=== PATIENT | male | born 1945 | race Caucasian/White ===

== ENCOUNTER 2019-05-03 10:45 | Outpatient (RCR) | payer MEDICARE, SELFPAY ==
--- NOTE | 2019-03-11 11:58 | PTOPEVAL ---
Thank you for referring this patient to [facility]. Please review, sign, date and return this plan of care [facility]. Pt referred to therapy due to OA of knee and hip. He demonstrates leg weakness, decreased balance, decreased ability to ambulate on level surfaces and steps. He requires additional skilled therapy 2x/wk x 4 wk to achieve therapy goals and improve function mobility. I agree with and certify that the following plan of care is medically necessary. Referring Physician Date Attending Provider: Antwan Murry MD Referring Provider: *PT Outpatient Evaluation Start: 03/11/19 09:54 Freq: Status: Active Protocol: Document 03/11/19 09:51 BLAIR (Rec: 03/11/19 10:50 BLAIR [id number]) Therapy Assessment Status Assessment Status Assessment Status Evaluation Outpatient Past Medical History Musculoskeletal History Hx Arthritis Yes: OA of left hip and knee Hx Joint Replacement Yes: right TKR 9 years ago Evaluation Information Problem Diagnosis left hip OA and knee OA Onset 6 months Subjective Information Pt reports left knee and hip Query Text:As Reported By Patient/ pain. States he has pain and Family difficulty with negotiating steps with left LE. States he avoids the basement at home due to the steps. HE feels unstable when he first stands due to legs feeling unstable. He report difficulty if prolonged standing. Denies problems with sitting, but the getting in/out of car is difficult. States increased pain with walking longer distances in the community. Reports the pain has progressed over the past 6 months. Cortison injection on left knee 4 wks and left hip injection 3 wks. He received therapy for his right hip 1 year ago, but is not performing HEP. Does not perform a walking or exercise program. He has a cane and walker at home, but does not want to use them. 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
--- NOTE | 2019-03-30 08:07 | PCPTNOTE ---
Patient called & cancelled scheduled appointment this date due to work.
--- NOTE | 2019-04-04 09:58 | PCPTNOTE ---
Patient did not show up for scheduled appointment this date.
--- NOTE | 2019-04-06 09:58 | PCPTNOTE ---
Patient did not show up for scheduled appointment this date. Called patient, & he stated that he just could make it, reminded him of his next appointment, & asked if he couldn't make to please call to reschedule.
--- NOTE | 2019-04-11 09:18 | PCPTNOTE ---
Patient called & cancelled scheduled appointment this date due to unknown reason. Will attempt to reschedule his re-eval. However, if pt does not attend his re-eval will plan to DC due to repeated no show/cancel.
--- NOTE | 2019-05-03 11:35 | PTOPEVAL ---
Thank you for referring this patient to [facility]. Please review, sign, date and return this plan of care [facility]ITY. Pt has been seen for 5 physical therapy visits from 03/11/19-05/03/19 to address his knee and hip pain. He has reached maximal potential with skilled therapy and is indep with a HEP. He has partially achieved his therapy goals. Plan to DC skilled therapy at this time with pt to cont with HEP and walking program. I agree with and certify that the following plan of care is medically necessary. Referring Physician Date Attending Provider: Antwan Murry MD Referring Provider: *PT Outpatient Re-Evaluation/Discharge Start: 03/11/19 09:54 Freq: Status: Active Protocol: Document 05/03/19 10:39 BLAIR (Rec: 05/03/19 11:30 [facility] [id number]) Outpatient Past Medical History Musculoskeletal History Hx Arthritis Yes: OA of left hip and knee Hx Joint Replacement Yes: right TKR 9 years ago Evaluation Information Problem Diagnosis left hip OA and knee OA Onset 6 months Additional Evaluation Detail Reports the pain has progressed over the past 6 months. Cortison injection on left knee 4 wks and left hip injection 3 wks. Subjective Information Reports the weather plays a Query Text:As Reported By Patient/ factor in his left knee and Family hip pain. He does the feel the leg is doing better. States the leg continues to give out during steps. He is going in/ out of the basement, but holds onto the railing for support. He does have knee pain with the steps. He reports improved LE stability with standing and transfers. HE is able to stand for only for 15min then he needs to move due to pain and weakness. He cont to have stiffness and pain with prolonged sitting in the car. He has left knee pain with distance community walking. States he will use the cane for community walking with decreased pain and improved endurance. He is performing his HEP 1x/ day. Pain Assessment Timing of Pain Assessment Timing of Pain Assessment Pre-Treatm
== END 2019-05-26 09:42 | disposition home or self-care (01) ==
LOC: ANHPT 10:45
PROVIDERS: PCP Family Medicine; Visit Provider Orthopaedic Surgery
DX: M17.12 Unilateral primary osteoarthritis, left knee (principal); M16.12 Unilateral primary osteoarthritis, left hip
CPT/HCPCS: 97110; 97116; 97140; 97162; 97530

== ENCOUNTER 2019-07-26 10:58 | Outpatient (CLI) | payer MEDICARE, SELFPAY ==
--- NOTE | ~2019-07-26 | XR_ITS ---
EXAMINATION: XR lg joint inject/asp w image DATE: 07/26/2019 11:39 INDICATION: Unilateral primary osteoarthritis, right hip. TECHNIQUE: A time-out was performed to verify the patient's name, date of , and procedure to b e performed. The procedure including the risks, benefits, and alternatives was discussed with the pat ient. Risks discussed included bleeding and infection. The patient understood the risks and agreed to proceed. The skin overlying the right hip joint was prepped and draped in usual sterile fashion. A nesthetic was administered with 1% lidocaine subcutaneously. A 22 G needle was advanced under fluoro scopic guidance into the joint. Injection of 1 mL of Omnipaque 240 confirmed intra-articular positio n of the needle. Subsequently, injectate consisting of 5 mL 1% lidocaine and 2 mL 10 mg/mL Kenalog w as instilled. The needle was removed and the entry site was cleaned and dressed. There were no imme diate complications. Fluoroscopy exposure time was 0.1 minutes. The total number of images was 2. FINDINGS: Real-time fluoroscopy demonstrates the needle in the right hip joint. Patient's pain prior to procedure:6/10. Patient's pain following the procedure: 0/10. IMPRESSION: 1. Right hip joint injection of local anesthetic and steroid with decrease in the patient's presentin g pain. Reviewed, dictated and finalized at location A. IMPRESSION: 1. Right hip joint injection of local anesthetic and steroid with decrease in t he patient's presenting pain.
== END 2019-07-26 10:59 | disposition home or self-care (01) ==
PROVIDERS: PCP Family Medicine; Visit Provider Orthopaedic Surgery
DX: M16.11 Unilateral primary osteoarthritis, right hip (principal)
CPT/HCPCS: 20610; 77002; J3301; Q9966

== ENCOUNTER 2020-07-31 10:20 | Outpatient (CLI) | payer MEDICARE, SELFPAY ==
--- NOTE | ~2020-07-31 | XR_ITS ---
EXAMINATION: XR lg joint inject/asp w image DATE: 07/31/2020 11:06 INDICATION: Unilateral primary osteoarthritis, right hip. TECHNIQUE: A time-out was performed to verify the patient's name, date of , and procedure to b e performed. The procedure including the risks, benefits, and alternatives was discussed with the pat ient. Risks discussed included bleeding and infection. The patient understood the risks and agreed to proceed. The skin overlying the right hip joint was prepped and draped in usual sterile fashion. A nesthetic was administered with 1% lidocaine subcutaneously. A 22 G needle was advanced under fluoro scopic guidance into the joint. Injection of 1 mL of Omnipaque 240 confirmed intra-articular positio n of the needle. Subsequently, injectate consisting of 5 mL 1% lidocaine and 2 mL 10 mg/mL Kenalog w as instilled. The needle was removed and the entry site was cleaned and dressed. There were no imme diate complications. Fluoroscopy exposure time was 0.1 minutes. The total number of images was 2. FINDINGS: Real-time fluoroscopy demonstrates the needle in the right hip joint. Patient's pain prior to procedure:0/10. Patient's pain following the procedure: 0/10. IMPRESSION: 1. Fluoroscopy guided right hip joint injection of local anesthetic and steroid. Reviewed, dictated and finalized at location A. IMPRESSION: 1. Fluoroscopy guided right hip joint injection of local anesthetic and steroid .
== END 2020-07-31 10:21 | disposition home or self-care (01) ==
LOC: ANHIMG 10:21
PROVIDERS: PCP Family Medicine; Visit Provider Orthopaedic Surgery
DX: M16.11 Unilateral primary osteoarthritis, right hip (principal)
CPT/HCPCS: 20610; 77002; J3301; Q9966

== ENCOUNTER 2022-05-30 07:46 | Outpatient (CLI) | payer MEDICARE, SELFPAY ==
--- NOTE | 2022-05-30 08:55 | ECG_ITS ---
Measurements Intervals [place] Rate: 53 P: 15 AR: 192 QRS: -46 QRSD: 104 T: 30 QT: 412 QTc: 387 Interpretive Statements SINUS BRADYCARDIA LEFT AXIS DEVIATION BORDERLINE ECG NO PREVIOUS ECG AVAILABLE FOR COMPARISON Electronically Signed On 05-31-2022 14:49:01 CDT by Syed Santoro M.D.
[2022-05-30 09:31] LABS: Basophils Absolute Auto 0.1 K/mm3 (0.0-0.1); Basophils Percent Auto 0.8 % (0.2-1.2); Eosinophils Absolute Auto 0.1 K/mm3 (0-0.3); Eosinophils Percent Auto 1.2 % (0-4.4); Hematocrit 44.5 % (42.0-52.0); Hemoglobin 15.1 g/dL (14.0-18.0); Immature Granulocyte Absolute 0.02 K/mm3 (0.00-0.031); Immature Granulocyte Percent A 0.3 % (0-0.5); Lymphocytes Absolute Auto 1.76 K/mm3 (0.9-3.2); Lymphocytes Percent Auto 27.2 % (18.3-44.2); Mean Corpuscular HGB Conc 33.9 g/dl (32-36); Mean Corpuscular Hemoglobin 30.8 pg (26-34); Mean Corpuscular Volume 90.6 fl (80-100); Mean Platelet Volume 10.5 fl (7.4-10.4); Monocytes Absolute Auto 0.4 K/mm3 (0.1-0.6); Monocytes Percent Auto 6.2 % (2.6-8.5); Neutrophils Absolute Auto 4.2 K/mm3 (1.3-6.7); Neutrophils Percent Auto 64.3 % (45.5-73.1); Platelet Count Result 243 k/mm3 (150-375); Red Blood Count 4.91 M/mm3 (4.6-6.20); Red Cell Distribution Width 12.5 % (11.5-14.5); White Blood Count 6.5 K/mm3 (4.5-10.0)
[2022-05-30 09:39] LABS: Albumin Level 4.6 g/dL (3.5-5.1); Estimated Glomerular Filt Rate > 60; Glucose 105 mg/dL (65-110)
[2022-05-30 09:47] LABS: Urine Cotinine NEGATIVE
[2022-05-30 09:48] LABS: Hemoglobin A1C 4.9 % (<5.7)
== END 2022-05-30 07:47 | disposition home or self-care (01) ==
LOC: ANHSURGERY 07:51
PROVIDERS: PCP Family Medicine; Visit Provider Orthopaedic Surgery
DX: Z01.818 Encounter for other preprocedural examination (principal); M16.11 Unilateral primary osteoarthritis, right hip; R94.31 Abnormal electrocardiogram [ECG] [EKG]
CPT/HCPCS: 80307; 82040; 82565; 82947; 83036; 85025; 87081; 93005

== ENCOUNTER 2022-06-16 00:47 | Day surgery (SDC) | payer MEDICARE, SELFPAY ==
[2022-05-30 08:00] VITALS: BMI 34.9
--- NOTE | 2022-05-30 08:23 | PC.NURSE ---
Report to the Outpatient Waiting Room, entrance under the green pavilion located off [facility], at time __0600 on date __06/16/22 . Planned Procedure Time: _729 . Time changes happen often and if your time is changed the preop area will call you the afternoon before. - You and your visitor will be asked to self-screen and do not enter if you have any COVID symptoms. - A mask is optional within the hospital at this time. Patients may have clear liquids (water, carbonated beverages, clear teas, apple juice) until 3 hours prior to surgery with a maximum of 20 ounces. - No food from midnight until time of surgery - Infants may have breast milk until 4 hours before surgery, formula 6 hours prior to surgery. - Children will be allowed to drink immediately following surgery. If applicable, please bring a bottle or sippy cup to assist with drinking. Juice, water, soda, and popsicles are readily available. For infants on formula, please bring formula the day of surgery. Pacifiers are allowed. Take the following medications with a SIP of water the morning of surgery: ____NONE DO NOT STOP ANY OF YOUR OTHER PRESCRIPTION MEDICATIONS PRIOR TO SURGERY ?EXCEPT THE FOLLOWING Medications to discontinue per physician NONE Please no make-up, nail belarusian, hairspray, perfume, deodorant, or body powder the day of surgery. No jewelry (including any body piercings) or valuables the day of surgery, leave them at home. Please take a shower or bath the night before, or the morning of, surgery with an antibacterial soap. Wear comfortable, loose fitting clothing. Children are encouraged to wear pajamas. - Jewelry must be removed prior to entering the operating room. Rings and piercings that are not removed may be cut off. - The hospital will not accept responsibility for valuables. - Please leave all valuables, including medications, at home the day of surgery. If you are going home after surgery, a licensed pharmacy delivery driver must drive you home. - NO public transportation without another adult if you receive anesthesia. - We recommend that an adult stay with you for 24 hours following discharge. - We also recommend that you do not drive, make important decision, drink alcoholic beverages, or take any drugs that were not prescribed by your health care provider for at least 24 hours after your discharge time. Follow any additional instructions given to you from your surgeon. If you or anyone in your household have experienced Covid symptoms in the past week, please notify your surgeon or the nurse liaison at the phone number below for possible testing. VERBAL AND WRITTEN instructions given to ___PATIENT AND DEBBIE and asked if any additional questions and then verbalized understanding. Patient advised to call surgeon office or pre surgery nurse liaison [phone] if any additional questions.
[2022-05-30 08:44] VITALS: BP 147/69; PULSE 58; RESP 18; TEMP 36.8; O2SAT 99
[2022-06-16] VITALS (12 sets, daily range): BP systolic 119–159; BP diastolic 56–75; PULSE 66–83; RESP 12–18; TEMP 35.7–36.9; O2SAT 93–99
--- NOTE | ~2022-06-16 | XR_ITS ---
EXAMINATION: XR hip RT min 2V DATE: 06/16/2022 10:56 INDICATION: Right hip arthroplasty. Postop. TECHNIQUE: 2 views of right hip were obtained. COMPARISON: Right hip radiographs 06/04/2022 FINDINGS: There is a total right hip arthroplasty in near-anatomic alignment. No fracture. There is g as in the soft tissues, consistent with recent surgery. IMPRESSION: 1. Total right hip arthroplasty in near-anatomic alignment. Reviewed, dictated and finalized at location A.
--- NOTE | ~2022-06-16 | XR_ITS ---
EXAMINATION: XR surgery orthopedic DATE: 06/16/2022 09:37 INDICATION: Right hip osteoarthritis. TECHNIQUE: A single intraoperative view of the right hip was obtained. COMPARISON: Right hip radiographs 06/04/2022 FINDINGS: The acetabular cup is in expected position. There is a broach in the proximal right femur. IMPRESSION: 1. Total right hip arthroplasty in progress. Reviewed, dictated and finalized at location A.
--- NOTE | 2022-06-16 06:34 | P.PNAN_ITS ---
Anes - Initial Pre Proc Eval Procedure: Operation Date: 06/16/22 07:30 Proposed Procedures p Right Total Hip Arthroplasty, Anterior Approach - Antwan Murry MD Date/Time: 06/16/22 06:34 Surgeon: Antwan Murry MD Pre Op Diagnosis: O A Right Hip Patient Data Age: 76 Gender: M Height: 1.65 m Weight: 95.1 kg Last Vital Signs Temp 36.8 C 05/30/22 08:44 Pulse 58 L 05/30/22 08:44 Resp 18 05/30/22 08:44 BP 147/69 H 05/30/22 08:44 Pulse Ox 99 05/30/22 08:44 O2 Del Method Room Air 05/30/22 08:44 Allergies Allergy/AdvReac Type Severity Reaction Status Date / Time Antihistamines - Alkylamine AdvReac Intermediate All Verified 06/16/22 06:28 antihistamines cause prostate swelling Home Medications Medication Instructions Recorded Confirmed Type finasteride 5 mg tablet See Rx Instructions .Route 08/19/21 06/16/22 Rx .COMPLEX #90 tabs tamsulosin 0.4 mg capsule See Rx Instructions .Route 08/19/21 06/16/22 Rx .COMPLEX #90 caps acetaminophen 650 mg 650 mg PO Q12H PRN Pain 05/30/22 06/16/22 History tablet,extended release (Tylenol Arthritis Pain) rivaroxaban 10 mg tablet (Xarelto) 10 mg PO DAILY #14 tabs 06/04/22 06/04/22 Rx Patient hx anesthesia problems: none Family hx anesthesia problems: none Results Review: All pre-operative results and documents have been reviewed as part of the pre- operative evaluation. [facility] Past Medical History Medical History BPH (benign prostatic hyperplasia) Urinary disorder Surgical History Surgical History H/O knee surgery Right knee unicompartmental replacement History of cataract surgery Family History Family History Other Family history of sleep apnea Social History Social History Smoking packs per day: 2 Smoking cigarettes per day: 40.0 Years smoked: 10 Smoking pack-years: 20.00 Smoking status: Former smoker Tobacco type: cigarettes Smoking end date: 02/23/71 Alcohol intake: never Substance use type: does not use Living arrangements: with family Additional living arrangements comments: Occupation/Education: retired Gender identity (if verbalized by the patient): Male Spiritual care concerns: No Anes - Eval Final PreProcedure Day of Procedure 06/16/22 06:34 Patient weight: obese Heart: regular rate and rhythm Lungs: clear to auscultation Airway: Mallampati scale class II Neurological: alert and oriented Last oral intake: >/= 8 hours ASA classification: II Emergent: no Anesthetic plan: proceed Anesthesia type and monitoring: general ETT and standard monitoring Results Review: All pre-operative results and documents have been reviewed as part of the pre- operative evaluation. Informed Consent: The patient's anesthetic plan and its attendant risks and benefits were discussed with the patient/family/POA. Questions were solicited and answers provided to the satisfaction of the patient/family/
[2022-06-16] MEDS: ACETAMINOPHEN 500 MG TABLET 1000 MG PO ×3 (06:42→21:29)
[2022-06-16] MEDS: LACTATED RINGERS 1,000 ML 30 ML IV CONT ×2 (06:51→10:41)
[2022-06-16] MEDS: TRANEXAMIC ACID 1,000MG/ISO100 1,000 MG/100 ML BAG 200 MG IVPB (07:08)
--- NOTE | 2022-06-16 07:24 | WPDHPUPDATE1 ---
History and Physical Update Update Date/Time: 06/16/22 07:24 History and Physical has been reviewed, including an updated exam of the patient. There are NO changes in the patient's condition. Risks, benefits, and alternatives have been discussed and questions answered. Patient agrees to proceed with procedure, which is a standard total hip replacement.
[2022-06-16] MEDS: ceFAZolin 2 GM/D5W 50 ML 2 GM/50 ML BAG IVPB ×2 (07:44→16:11)
--- NOTE | 2022-06-16 09:55 | SUR.OPER ---
Cell Saver used intraoperatively EBL- 350 ml Patient received 125 ml back
--- NOTE | 2022-06-16 10:33 | W.PM.PROC2 ---
Procedure Note - Detailed Date of Procedure 06/16/22 Pre-op Diagnosis O A Right Hip Post-op Diagnosis Same Procedure Performed right total hip replacement, standard approach Surgeon Antwan Murry MD Manager Clinical Informatics Ashlee Waters Anesthesia General Description of Procedure The patient was identified and proper site identified. He was taken operating room and transferred to the OR table taking care to pad torso extremities. After general anesthetic induction and intubation was put in the left lateral decubitus position usual manner for right hip replacement. Right hip and thigh was prepped and draped in usual sterile fashion. Curvilinear incision was made over the greater trochanter. Sharp dissection carried down through subcutaneous tissue to the gluteus fascia and IT band which were divided in incision. . The anterior half of the abductors were sharply dissected off the greater trochanter developed the interval between the abductors and the capsule. Capsule was divided in an inverted T-fashion allowing for the hip to be dislocated. Neck cut was made about two fingerbreadths above the level lesser trochanter and head removed. Acetabulum was cleared of debris and reamed sequentially to 53 millimeters. A 54 G7 cup was impacted in about 20? of anteversion and 40? of abduction following the patient's anatomy. It was further secured with a screw and a trial liner placed. Femur was sequentially reamed to accept a size 12 microplasty femoral stem. Trial reduction was undertaken. Intraoperative x-ray showed satisfactory position of the implants. The trials removed. The wound was thoroughly irrigated. The real liner for the 36 head was seated in the acetabular shell. The real size 13 microplasty femoral stem was seated. This combination was trialed and with a +636 head gave good holiness of leg lengths and excellent stability. The real size 36+ six ceramic construct was impacted on the neck of the femoral component. After noted thorough lavage of the joint the hip was reduced. Stability again assessed as noted be stable through range of motion. The arely-incisional and articular tissues were infiltrated with 60 cc of the arthroplasty solution. . The Surgicel powder was used both deep and superficial to the deep fascia for added hemostasis. Capsule was repaired with 2. Vicryl suture. Abductors repaired back to the greater trochanter with #5 Ethibond interrupted sutures passed through a bony bridge. The deep fascia was reapproximated with 0 looped PDS suture as was the deeper layers of the subcu. Skin reapproximated with 3-0 Monocryl, 2-0 Quill and tissue adhesive. Sterile dressing was applied. Tolerated the procedure well. There were no known intraoperative complications. Estimated blood loss 350 cubic centimeters. He received 125 back via Cell Saver. He received perioperative antibiotics. He was awakened, extubated taken to recovery area in stable condition. Estimated Blood Loss 350 ( 125 cell Saver return) Drains No Packing No Pathology None sent Complications No immediate complications Condition Stable Disposition PACU [facility] Billing Surgery - Charge Forward: Surgery Billing ([id number])
--- NOTE | 2022-06-16 11:12 | SUR.PHASEI ---
1112: Simple mask removed.
--- NOTE | 2022-06-16 12:01 | ADMGEN ---
This patient, Nolberto Mooney, was admitted to [address] [facility] Surg Room 327-01. Patient/family oriented to hospital policies and general routines including ID bracelet, bed and alarms, visiting hours, pain management, procedures, bathroom and other care routines, personal items, smoking policy, room service/diet, and visiting hours. Information on how to activate the Rapid Response Team has been discussed. Patient/Family are encouraged to report perceived risks to care and to ask questions if they do not understand what they are told or what they should do.
--- NOTE | 2022-06-16 12:46 | PM.IMCN ---
Assessment and Plan Assessment and plan (1) S/P total right hip arthroplasty: Code(s): Z96.641 - Presence of right artificial hip joint Status: Acute Assessment and Plan: Postop care per orthopedic physician DVT prophylaxis per orthopedic physician. SCDs have been ordered and he is on Xarelto. Analgesics per orthopedic physician. The patient is on oxycodone, fentanyl, Tylenol, and Celebrex PT OT per orthopedic physician (2) BPH (benign prostatic hyperplasia): Code(s): N40.0 - Benign prostatic hyperplasia without lower urinary tract symptoms Status: Acute Assessment and Plan: Continue with finasteride and tamsulosin. Plan GI prophylaxis Pepcid HPI Data of Consult Consult date: 06/16/22 Requesting Physician: Antwan Murry MD Primary Care Provider: Javad Finn MD Consult Narrative Narrative: Nolberto Mooney is a 76 year old male who has severe osteoarthritis to his right hip. The patient has lost 33 lb recently and had does appear to help his right hip somewhat. However the patient stated that he has limited activity due to the right hip pain. The patient stated that he typically gained his weight back and then the right hip pain gets worse again. Patient has difficulty with everyday activities. He has tried conservative measures. Today the patient had a right total hip replacement per Dr. Murry. Please see operative report. Estimated blood loss is 350 with 125 mL cell Saver return. According to the operative report there was no immediate complications. The patient is rather sleepy today. He is falling asleep during the interview. The patient does not typically wear oxygen at home but is on oxygen at 2 L per nasal cannula today. The patient denies any sleep apnea. The patient has no complaints at this time. The patient was admitted to Orthopedic surgery Services. The hospitalist group was asked to consult on this patient on the date of service of 06/16/2022. Review of Systems Review of Systems: All systems reviewed & are unremarkable except as noted in HPI and below Constitutional: Constitutional: Reports as per HPI and Reports no additional constitutional complaints Eyes: Eyes: Reports as per HPI and Reports no additional eye complaints ENT: Reports system reviewed and no additional complaints, except as documented and Reports Normal hearing present Cardiovascular: Cardiovascular: Reports no additional cardiovascular complaints Respiratory: Respiratory: Reports no additional respiratory complaints and Reports no additional respiratory complaints Gastrointestinal: Gastrointestinal: Reports as per HPI and Reports no additional gastrointestinal complaints Musculoskeletal: Musculoskeletal: Reports no additional musculoskeletal complaints Integumentary/Breasts: Skin/Breast: Reports system reviewed and no additional complaints, except as docu and Reports as per HPI Neurologic: Reports system reviewed and no additional complaints, except as documented, Reports as per HPI and Reports Normal hearing present Psychiatric: Psychiatric: Reports no additional psychiatric complaints and Reports as per HPI Endocrine: Endocrine: Reports no additional endocrine complaints Hematologic/Lymphatic: Hematologic/Lymphatic: Reports no additional hematologic/lymphatic complaints Allergic/Immunologic: Allergic/Immunologic: Reports no additional allergic/immunologic complaints [facility] Past Medical History Medical History (Updated 06/16/22 @ 16:10 by Genny Davis NP) BPH (benign prostatic hyperplasia) Urinary disorder The patient did have a Martínez catheter but no longer uses a Martínez catheter. Surgical History Surgical History (Updated 06/16/22 @ 16:11 by Genny Davis NP) H/O hemorrhoidectomy H/O knee surgery Right knee unicompartmental replacement History of cataract surgery S/P total right hip arthroplasty Family History Family History (Reviewed 06/16/22 @ 16
[2022-06-16] MEDS: oxyCODONE HCL (*CRX) 5 MG TAB IR PO ×3 (13:59→21:29)
[2022-06-16] MEDS: FINASTERIDE 5 MG TABLET BY MOUTH (17:03)
[2022-06-16] MEDS: TAMSULOSIN HCL 0.4 MG CAPSULE BY MOUTH (17:03)
[2022-06-16] MEDS: SENNA/DOCUSATE SODIUM TABLET 2 TAB PO (21:29)
[2022-06-16] MEDS: FAMOTIDINE 20 MG TABLET PO (21:30)
[2022-06-17] VITALS: BP 116/46; PULSE 64; RESP 14; TEMP 37.2; O2SAT 96
[2022-06-17] MEDS: ceFAZolin 2 GM/D5W 50 ML 2 GM/50 ML BAG IVPB ×2 (01:08→08:33)
[2022-06-17] MEDS: oxyCODONE HCL (*CRX) 5 MG TAB IR PO ×4 (01:09→13:11)
[2022-06-17 04:00] VITALS: BP 129/48; PULSE 64; RESP 14; TEMP 36.4; O2SAT 98
--- NOTE | 2022-06-17 07:33 | PM.IMPN ---
Progress Note: A&P Assessment and Plan (1) S/P total right hip arthroplasty: Code(s): Z96.641 - Presence of right artificial hip joint Status: Acute Assessment and Plan: Postop care per orthopedic physician. POD1 Right total hip replacement. DVT prophylaxis per orthopedic physician. SCDs have been ordered and he is on Xarelto. Analgesics per orthopedic physician. The patient is on oxycodone, fentanyl, Tylenol, and Celebrex PT OT and weight bearing status per ortho. (2) BPH (benign prostatic hyperplasia): Code(s): N40.0 - Benign prostatic hyperplasia without lower urinary tract symptoms Status: Chronic Assessment and Plan: Continue with finasteride and tamsulosin. Counseled to monitor urine output and discussed symptoms concerning for acute retention. He and his verbalized understanding. Plan Patient discharging home with his today. Time Spent With Patient Time with patient: 15 - 25 minutes Subjective Date/time seen: 06/17/22 07:33 He reports indwelling urinary catheter was removed this morning and he voided a small amount after it was removed. No lower abdominal pain, dysuria, or hematuria. He has pain to his right hip that is tolerable with oral medications. He denies chest pain, SOB, cough, abdominal pain, N/V or paresthesia. Review of Systems Review of Systems: All systems reviewed & are unremarkable except as noted in HPI and below Exam Narrative: General: No acute distress.? Lying in bed. Non-toxic appearing. Mental Status/Psych: Awake, alert and oriented x4 with clear speech. Pleasant and cooperative. neutral mood and affect. Skin: Skin fair, warm, dry without rashes or lesions. right hip aquacel clean, dry and intact. Surrounding skin without ecchymosis or erythema. ? HEENT: Normocephalic. Sclera is non-icteric. Pupils equal and round. Oral mucosa pink and moist. Neck: No JVD. Heart: S1 and S2 regular rate and rhythm. No murmurs, gallops, or rubs auscultated. Chest: Respirations even and unlabored. Lung sounds are clear to auscultation without wheezes, rhonchi, or rales. Abdomen: Soft, obese and non-tender to palpation.? Bowel sounds present in all 4 quadrants. No guarding. Extremities:? No edema, erythema or calf tenderness. Neurological: No focal deficits. Sensation intact all extremities ? Objective Data Vital Signs Vital Signs: Vital Signs - 24 hr 06/16/22 10:41 06/16/22 10:55 06/16/22 11:10 Temperature 97.8 F Pulse Rate 79 68 71 Respiratory Rate 12 12 12 Blood Pressure 159/56 H 138/68 130/57 L Pulse Oximetry 98 97 98 Oxygen Delivery Simple Face Mask Simple Face Mask Simple Face Mask Oxygen Flow Rate 6 8 8 06/16/22 11:15 06/16/22 11:25 06/16/22 11:40 Temperature Pulse Rate 69 66 70 Respiratory Rate 12 12 12 Blood Pressure 125/75 119/64 Pulse Oximetry 95 93 94 Oxygen Delivery Nasal Cannula Nasal Cannula Nasal Cannula Oxygen Flow Rate 2 2 3 06/16/22 12:50 06/16/22 12:56 06/16/22 12:45 Temperature 96.3 F L Pulse Rate 77 Respiratory Rate 16 Blood Pressure 128/62 Pulse Oximetry 98 95 98 Oxygen Delivery Nasal Cannula Nasal Cannula Oxygen Flow Rate 3 2 06/16/22 13:20 06/16/22 13:35 06/16/22 20:00 Temperature 96.5 F L 98.5 F Pulse Rate 83 77 Respiratory Rate 18 14 Blood Pressure 144/63 H 154/60 H Pulse Oximetry 97 97 Oxygen Delivery Room Air Oxygen Flow Rate 06/17/22 00:00 06/17/22 04:00 Temperature 98.9 F 97.6 F Pulse Rate 64 64 Respiratory Rate 14 14 Blood Pressure 116/46 L 129/48 L Pulse Oximetry 96 98 Oxygen Delivery Oxygen Flow Rate Intake/Output Intake/Output: Intake & Output 06/14/22 06/15/22 06/16/22 06/17/22 23:59 23:59 23:59 23:59 Intake Total 640 500 Output Total 40 800 Balance 600 -300 Meds/Results Medications: Active Medications Generic Name Dose Route Start Last Admin Trade Name Freq PRN Reason Stop Dose Admin Acetaminophen 1,000
[2022-06-17 07:59] VITALS: BP 113/47; PULSE 59; RESP 16; TEMP 36.2; O2SAT 96
--- NOTE | 2022-06-17 08:25 | PM.DS ---
DS: Admitting Diagnosis Discharge Date June 17, 2022 Admitting Diagnosis osteoarthritis right hip DS: Discharge Diagnosis Discharge Diagnosis (1) S/P total right hip arthroplasty: Code(s): Z96.641 - Presence of right artificial hip joint Status: Acute Plan Patient will be discharged home. Follow-up will be in the office with me in two weeks. He is use walker full-time. I recommended 3/8 inch shoe lift left lower extremity. DS: Summary Hospital Course Reason for hospitalization: Observation following outpatient procedure Hospital Course: Following the patient's surgery he was admitted to the floor. Therapy was started and he excelled. Being discharged home on postop day one. Overnight stay otherwise uneventful. Time Spent with Patient Time attestation: Total time spent providing and/or coordinating discharge services: Exam Const: General: cooperative, no acute distress and alert Nutritional Appearance: other Orientation/consciousness: patient oriented x3 Limitations: no limitations HENMT: Head: normal to inspection Chest: Chest palpation & inspection: normal inspection of the chest Resp: Effort & Inspection: normal respiratory effort and able to speak in complete sentences GI: Inspection: other Neuro: General: patient oriented x3 Cranial nerves: Yes Normal hearing present Cognition (Neuro): normal cognition Speech: normal speech Gait exam (Neuro): Other gait observations present Extrem: General: normal to inspection and other Other: Exam of Right hip wound shows that it is dry. Minimal swelling. No bruising. Grossly neurovascular status intact right lower extremity. Slight leg length discrepancy with the right being about a centimeter longer than the left clinically. Psych: Appearance: grossly normal Mental Status: mental status grossly normal Radiology Reports: Comments: EXAMINATION: XR hip RT min 2V DATE: 06/16/2022 10:56 INDICATION: Right hip arthroplasty. Postop. TECHNIQUE: 2 views of right hip were obtained. COMPARISON: Right hip radiographs 06/04/2022 FINDINGS: There is a total right hip arthroplasty in near-anatomic alignment. No fracture. There is gas in the soft tissues, consistent with recent surgery. IMPRESSION: 1. Total right hip arthroplasty in near-anatomic alignment. Reviewed, dictated and finalized at location A. DS: Data Imaging Attestation: I personally reviewed and interpreted this imaging study as follows: Discharge Plan Discharge Patient Disposition: Home, Self-Care Discharge Instructions: 3 times daily for 20 minutes each time, reclining in bed with ice packs over the incision and a pillow underneath the calf of the affected leg, not under the knee. Your wound is glued so it is okay to remove the dressing, get into the shower and get the wound wet in two days. Be sure to read through all the information that came from a my office and the hospital. Most of the answers you will need can be found that material. Call the office with any questions that you cannot find answers to, or concerns you may have. After the Xarelto is completed, start taking one coated 325 mg aspirin daily and do this for four more weeks. Please call [facility] at as soon as possible to arrange for/verify your follow-up appointment to be seen in 2 weeks. Also, call the office with any orthopedic/surgical related questions prior to follow-up. Be sure to get up and move around several times daily but do not overdo it. Take the arthritis formula Tylenol 650 mg tablet on an 8 hour schedule. A good 8 hour schedule is: 6:00 a.m., 2:00 p.m., 10:00 p.m. you may take the prescribed pain medication along with the Tylenol; it is not to be taken instead of the Tylenol. I would like for you to take the Tylenol on a schedule for 2-3 weeks.
[2022-06-17] MEDS: CELECOXIB 200 MG CAPSULE PO (08:32)
[2022-06-17] MEDS: FAMOTIDINE 20 MG TABLET PO (08:32)
[2022-06-17] MEDS: SENNA/DOCUSATE SODIUM TABLET 2 TAB PO (08:33)
[2022-06-17] MEDS: RIVAROXABAN 10 MG TABLET PO (08:33)
[2022-06-17] MEDS: polyethylene glycoL 3350 17 GM POWD.PACK PO (08:36)
--- NOTE | 2022-06-17 10:20 | WPDANESPN ---
Anes - Prog Note Post-Op Date/Time: 06/17/22 10:20 Cardiovascular status: normal Respiratory status: normal Airway patency: baseline Mental status: baseline Post-Op hydration status: normal Vital Signs: Last Vital Signs Temp 36.2 C L 06/17/22 07:59 Pulse 59 L 06/17/22 07:59 Resp 16 06/17/22 07:59 BP 113/47 L 06/17/22 07:59 Pulse Ox 96 06/17/22 07:59 O2 Del Method Room Air 06/17/22 08:00 O2 Flow Rate 2 06/16/22 12:56 Pain Score (VAS): 310 I/O: Intake & Output 06/16/22 06/17/22 06/17/22 23:59 07:59 15:59 Intake Total 290 550 290 Output Total 800 150 Balance 290 -250 140 Post-procedural complaints: none Patient Feedback: Patient satisfied with anesthetic care.
[2022-06-17 11:56] VITALS: BP 144/56; PULSE 60; RESP 16; TEMP 36.7; O2SAT 99
== END 2022-06-17 13:25 | disposition home or self-care (01) ==
LOC: ANHSURGERY 05:57 → ANH3MEDSUR 11:51
PROVIDERS: PCP Family Medicine; Visit Provider Orthopaedic Surgery
PROC: (CPT 27130; principal; 2022-06-16 07:30)
DX: M16.11 Unilateral primary osteoarthritis, right hip (principal); N40.0 Benign prostatic hyperplasia without lower urinary tract symptoms; Z87.891 Personal history of nicotine dependence; E66.9 Obesity, unspecified; Z68.34 Body mass index [BMI] 34.0-34.9, adult
CPT/HCPCS: 27130; 36415; 73502; 86850; 86900; 86901; 97110; 97161; 97165; 97530; 97535; 99199; A9270; C1776; J0171; J0330; J0690; J1100; J1170; J2250; J2270; J2370; J2405; J2704; J2710; J2795; J3010; J7030; J7120

== ENCOUNTER 2022-08-28 10:30 | Outpatient (RCR) | payer MEDICARE, SELFPAY ==
--- NOTE | 2022-08-07 11:12 | OPREHPOC ---
Outpatient Therapy Plan of Care This is a Multidisciplinary Plan of Care that may contain components documented by all disciplines (PT, OT, and ST.) PT Problem 1 PT Problem #1 Knowledge Deficit PT Goal 1 Goal 1. Patient will perform independent HEP Target Visit 8 PT Goal 2 Goal 2. Patient will demonstrate appropriate use of cane Target Visit 8 PT Problem 2 PT Problem #2 Impaired Endurance PT Goal 1 Goal 1. Patient will ambulate 400 feet on the 2 minute walk test Target Visit 8 PT Problem 3 PT Problem #3 Impaired Balance PT Goal 1 Goal 1. Improve 5 time sit to stand to less than 12 seconds Target Visit 8 PT Problem 4 PT Problem #4 Impaired Strength PT Goal 1 Goal Improve hip flexion and abduction to 5/5 Target Visit 8
--- NOTE | 2022-08-07 11:13 | PTOPEVAL1 ---
Assessment and note entered by Luisa Longo DPT Evaluation Information Assessment Status Evaluation Subjective Information Pt had R ROSA on 06/16/22. Has been having some ongoing bladder issues and is currently using a catheter which may be removed next week. States his hip has been feeling pretty good, did not have home health therapy at all. Returned to [facility] last week and does not go again for another year. No hip pain in the last week. Using cane almost all the time right now, prior to surgery had not been using an assistive device. Pt reports he has not yet tried to get to his basement, prior to surgery was doing that. Feels a little unsteady. Pt is dressing and bathing independently, not yet driving. Pt is retired. Does report a LOB/fall last week. Reported Pain Level Pain Score 0: Self Report Assessment PT Clinical Summary The patient is presenting to skilled therapy s/p R ROSA on 06/16/22. He presents with decreased LE strength, gait and balance impairments, and is currently using a cane which are contributing to his difficulty navigating stairs to his basement and performing his typical ADL's. He will benefit from therapy to address these impairments and return to prior level. Plan of Care Interventions Electrical Stimulation,Gait Training,Hot Pack/Cold Pack,Manual Therapy,Neuro Re-education,Patient/ Caregiver Education,Therapeutic Activities, Therapeutic Exercise,Self-Care/Home Management PT Services Indicated Yes Treatment Frequency and 2 times a week for 8 visits Duration These treatments will address the objective and functional deficits as defined above. The patient will be advanced safely and appropriately in order for the patient to progress towards his/her prior level of function. Additional exercises will be introduced and as well as a comprehensive home exercise program upon discharge, if needed, ?to ensure carryover of functional gains achieved in the clinic. This treatment plan has been reviewed and agreement upon by the patient.
--- NOTE | 2022-09-01 07:26 | PCPTNOTE ---
Pt. canceled 09/01/22 appointment noting that he was sick.
--- NOTE | 2022-09-05 12:58 | PCPTNOTE ---
Patient called to cancel appointment 09/05/22 due to illness
== END 2022-11-05 23:59 | disposition home or self-care (01) ==
LOC: ANHPT 10:30
PROVIDERS: PCP Family Medicine; Visit Provider Orthopaedic Surgery
DX: Z47.1 Aftercare following joint replacement surgery (principal); Z96.641 Presence of right artificial hip joint
CPT/HCPCS: 97110; 97161; 97530

== ENCOUNTER 2023-11-27 10:54 | Outpatient (CLI) | payer MEDICARE, SELFPAY ==
--- NOTE | 2023-11-27 11:58 | ECG_ITS ---
Test Date: 2023-11-27 12:18:03 Measurements Intervals [place] Rate: 54 P: 15 MI: 183 QRS: -46 QRSD: 117 T: 28 QT: 418 QTc: 397 Interpretive Statements SINUS BRADYCARDIA MARKED LEFT AXIS DEVIATION [QRS AXIS < -30] MODERATE INTRAVENTRICULAR CONDUCTION DELAY [110+ ms QRS DURATION] No previous ECG available for comparison Electronically Signed On 11-27-2023 13:14:35 CDT by Evaristo Morrison M.D.
[2023-11-27 12:28] LABS: Basophils Absolute Auto 0.1 K/mm3 (0.0-0.1); Basophils Percent Auto 0.7 % (0.2-1.2); Eosinophils Absolute Auto 0.1 K/mm3 (0-0.3); Eosinophils Percent Auto 1.4 % (0-4.4); Hematocrit 44.5 % (42.0-52.0); Hemoglobin 15.1 g/dL (14.0-18.0); Immature Granulocyte Absolute 0.05 K/mm3 (0.00-0.031); Immature Granulocyte Percent A 0.7 % (0-0.5); Lymphocytes Absolute Auto 2.21 K/mm3 (0.9-3.2); Lymphocytes Percent Auto 31.6 % (18.3-44.2); Mean Corpuscular HGB Conc 33.9 g/dl (32-36); Mean Corpuscular Hemoglobin 31.4 pg (26-34); Mean Corpuscular Volume 92.5 fl (80-100); Mean Platelet Volume 10.4 fl (7.4-10.4); Monocytes Absolute Auto 0.4 K/mm3 (0.1-0.6); Monocytes Percent Auto 5.2 % (2.6-8.5); Neutrophils Absolute Auto 4.2 K/mm3 (1.3-6.7); Neutrophils Percent Auto 60.4 % (45.5-73.1); Platelet Count Result 248 k/mm3 (150-375); Red Blood Count 4.81 M/mm3 (4.6-6.20); Red Cell Distribution Width 12.3 % (11.5-14.5)
[2023-11-27 12:39] LABS: Albumin Level 4.4 g/dL (3.5-5.1); Anion Gap 8 mmol/L (4-12); Blood Urea Nitrogen 13 mg/dL (9-20); Calcium 9.5 mg/dL (8.4-10.2); Carbon Dioxide 29 mmol/L (22-30); Chloride 103 mmol/L (98-107); Estimated Glomerular Filt Rate > 60; Glucose 104 mg/dL (65-110); Potassium 4.4 mmol/L (3.4-5.0); Sodium 140 mmol/L (137-145)
[2023-11-27 12:41] LABS: Urine Cotinine NEGATIVE
[2023-11-27 12:45] LABS: Hemoglobin A1C 5.2 % (<5.7)
== END 2023-11-27 10:55 | disposition home or self-care (01) ==
LOC: ANHSURGERY 10:58
PROVIDERS: PCP Family Medicine; Visit Provider Orthopaedic Surgery
DX: M16.12 Unilateral primary osteoarthritis, left hip (principal); Z01.818 Encounter for other preprocedural examination; K43.9 Ventral hernia without obstruction or gangrene
CPT/HCPCS: 80048; 80307; 82040; 83036; 85025; 87081; 93005

== ENCOUNTER 2023-12-15 03:03 | Day surgery (SDC) | payer MEDICARE, SELFPAY ==
[2023-11-27 11:04] VITALS: BMI 34.8
--- NOTE | 2023-11-27 11:35 | PC.NURSE ---
Report to the Outpatient Waiting Room, entrance under the green pavilion located off [facility], at time _6 AM on date __12/15/23 . Planned Procedure Time: __7:30 AM .? Time changes happen often and if your time is changed the preop area will call you the afternoon before. - You and your visitor will be asked to self-screen and do not enter if you have any COVID symptoms. Please call surgeon if you need to reschedule. - A mask is optional within the hospital at this time. Patients may have clear liquids (water, carbonated beverages, clear teas, apple juice) until 3 hours prior to surgery( 4:30 AM) with a maximum of 20 ounces. - No food from midnight until time of surgery and no smoking - Infants may have breast milk until 4 hours before surgery, infant formula 6 hours prior to surgery. - Children will be allowed to drink immediately following surgery.? If applicable, please bring a bottle or sippy cup to assist with drinking. Juice, water, soda, and popsicles are readily available.? For infants on formula, please bring formula the day of surgery.? Pacifiers are allowed. Take only the following medications with a SIP of water on the morning of surgery: __NONE DO NOT STOP ANY OF YOUR OTHER PRESCRIPTION MEDICATIONS PRIOR TO SURGERY EXCEPT THE FOLLOWING Medications to discontinue per physician ____NONE Please no make-up, nail nepali, hairspray, perfume, deodorant, or body powder the day of surgery.? No jewelry (including any body piercings) or valuables the day of surgery, leave them at home.? Please take a shower or bath the night before, or the morning of, surgery with an antibacterial soap.? Wear comfortable, loose fitting clothing.? Children are encouraged to wear pajamas. - Jewelry must be removed prior to entering the operating room.? Rings and piercings that are not removed may be cut off. - The hospital will not accept responsibility for valuables.? - Please leave all valuables, including medications, at home the day of surgery. If you are going home after surgery, a licensed truck driver must drive you home.? - NO public transportation without another adult if you receive anesthesia. - We recommend that an adult stay with you for 24 hours following discharge. - We also recommend that you do not drive, make important decision, drink alcoholic beverages, or take any drugs that were not prescribed by your health care provider for at least 24 hours after your discharge time Follow any additional instructions given to you from your surgeon. VERBAL AND WRITTEN instructions given to _PATIENT AND AIME and asked if any additional questions and then verbalized understanding. Patient advised to call surgeon office or pre surgery nurse liaison [phone] if any additional questions.
[2023-11-27 11:59] VITALS: BP 178/72; PULSE 57; RESP 18; TEMP 37.2; O2SAT 99
--- NOTE | 2023-12-11 10:41 | P.HP_ITS ---
H&P: HPI History of Present Illness Date/Time: 12/11/23 10:41 Chief Complaint: Left hip DJD Narrative: 78-year-old male presents today for a left anterior total hip arthroplasty. Patient has moderately severe osteoarthritis in the hip. He has been having symptoms in the hip for several years. They have progressively gotten worse. This point is having symptoms on a daily basis. He will use x-ray Tylenol which gives him a little bit of relief. He voids Advil or anti-inflammatories due to he sleep bruising. He has had his right hip replaced in the past is very happy with the results. At this point he feels he is ready proceed with total hip arthroplasty on the left. Review of Systems Review of Systems: All systems reviewed & are unremarkable except as noted in HPI and below PMFSH Past Medical History Medical History BPH (benign prostatic hyperplasia) Urinary disorder The patient did have a Martínez catheter but no longer uses a Martínez catheter. Surgical History Surgical History H/O hemorrhoidectomy H/O knee surgery Right knee unicompartmental replacement 08/03/2012 History of cataract surgery S/P total right hip arthroplasty July 16, 2022 - standard approach Family History Family History Father Diabetes mellitus Mother Diabetes mellitus Sibling Diabetes mellitus Other Family history of sleep apnea Social History Social History Social History: The patient lives with his . He has 2 biological children and 1 adopted child. 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 Code status full code Smoking packs per day: 2 Smoking cigarettes per day: 40.0 Years smoked: 40 Smoking pack-years: 80.00 Smoking status: Former smoker Tobacco type: cigarettes Second hand tobacco smoke exposure: No Smoking end date: 02/23/71 Additional smoking assessment comments: DENIES ANY FORM OF TOBACCO USE Alcohol intake: never Substance use: never Substance use type: does not use Do You Feel Safe in your Home?: Yes Lack of Transportation: No Lack of Food: Never True Current Housing: I Have Housing Concerned About Future Housing: No Difficulty Paying Gas/Electric Bills: No Difficulty Paying for Meds: No Currently Unemployed: No Education: Associate Degree Difficulty w/ Childcare or Family Care: No Living arrangements: with family Additional living arrangements comments: Occupation/Education: retired 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[employer], 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 Gender identity (if verbalized by the patient): Male Spiritual care concerns: No Meds Home Medications and Allergies Home Medications Medication Instructions Recorded Confirmed Type tamsulosin 0.4 mg capsule See Rx Instructions .Route 02/12/23 11/27/23 Rx .COMPLEX #90 caps finasteride 5 mg tablet See Rx Instructions .Route 09/15/23 11/27/23 Rx .COMPLEX #90 tabs acetaminophen 650 mg 650 mg PO Q12H PRN Pain 11/27/23 11/27/23 History tablet,extended release (Tylenol Arthritis Pain) Allergies Allergy/AdvReac Type Severity Reaction Status Date / Time Antihistamines - Alkylamine AdvReac Intermediate All Verified 12/02/23 09:25 antihistamines cause prostate swelling Exam Narrative: 78-year-old male alert pleasant. He curly ghs 209 lb. BMI is 34.9. His left hip flexes 95? which caused him severe groin pain. Internal rotation to 10? causing severe anterior lateral hip pain. External rotation to 20?. He has normal abduction strength in the lateral position and no tenderness over the greater trochanter. Stinchfield maneuver causes a moderately severe pain in the groin and anterior lateral hip. Who reports numbness to light touch the bottom of both feet. 2+ dorsalis pedis and posterior artery pulse palpable. No edema in lower extremities. Skin around the hip and groin crease are normal. Resp: Auscultation: clear to auscultation bilaterally Cardio: Rate: regular rate Rhythm: regular rhythm Assessment and Plan Assessment and plan (1) Primary osteoarthritis of left hip: Code(s): M16.12 - Unilateral primary osteoarthritis, left hip Status: Acute Assessment and Plan: 78-year-old male who has moderately severe osteoarthritis of the left hip with daily symptoms. At this point patient feels he is ready proceed with total hip arthroplasty. He is very happy with his results from his right total hip. Surgical procedures well as the risks and complications were discussed in detail all questions were answered and we will proceed. Patient will avoid any aspirin or ibuprofen products 1 week prior to surgery. He will see his primary care doctor, Dr. Finn, for pre-surgical clearance. Patient's nasal swab was negative. Hemoglobin was 15.1 and platelets were 248. Chem panel is all within normal limits creatinine is 1.10. Patient did have an issue of urinary retention when he had his right hip replaced in the past. He has been seeing Dr. Ash and is on medication for this. He was also started on bethanechol 10 mg 7 days before surgery. He will also continue with his finasteride and tamsulosin as well.
[2023-12-15] VITALS (13 sets, daily range): BP systolic 107–148; BP diastolic 46–66; PULSE 62–92; RESP 12–20; TEMP 34.9–36.6; O2SAT 68–100; BMI 34.7
--- NOTE | ~2023-12-15 | XR_ITS ---
EXAMINATION: XR surgery orthopedic DATE: 12/15/2023 11:01 INDICATION: Anterior approach left total hip arthroplasty. TECHNIQUE: A single intraoperative fluoroscopic view of left hip was obtained. I was not present. Flu oroscopy exposure time was 42 seconds. COMPARISON: Pelvis and left hip radiographs 12/15/2023 FINDINGS: There is a total left hip arthroplasty in near-anatomic alignment. No fracture. IMPRESSION: 1. Total left hip arthroplasty in near-anatomic alignment. Reviewed, dictated and finalized at location A.
--- NOTE | ~2023-12-15 | XR_ITS ---
EXAMINATION: XR hip LT 1V w AP pelvis DATE: 12/15/2023 11:01 INDICATION: Total left hip arthroplasty. Postop. TECHNIQUE: An anteroposterior view of the pelvis on 2 radiographs and single view of left hip were ob tained. COMPARISON: Pelvis and left hip radiograph 09/30/23 FINDINGS: There are bilateral total hip arthroplasties in near-anatomic alignment. No fracture. No pe riprosthetic lucency of the right hip to suggest loosening or infection. There is soft tissue gas ino r the left hip, consistent with recent surgery. IMPRESSION: 1. Bilateral total hip arthroplasties in near-anatomic alignment. Reviewed, dictated and finalized at location A.
[2023-12-15] MEDS: LACTATED RINGERS 1,000 ML 30 ML IV CONT ×2 (06:33→10:56)
[2023-12-15] MEDS: ACETAMINOPHEN 500 MG TABLET 1000 MG PO (06:34)
[2023-12-15] MEDS: VANCOMYCIN 1,500 MG/NS 500 ML BAG 250 MG IVPB (06:34)
[2023-12-15] MEDS: ceFAZolin 2 GM/D5W 50 ML 2 GM/50 ML BAG IVPB ×3 (06:34→21:24)
[2023-12-15] MEDS: TRANEXAMIC ACID 1,000MG/ISO100 1,000 MG/100 ML BAG 200 MG IVPB (07:00)
--- NOTE | 2023-12-15 07:05 | WPDANESEPPF ---
Anes - Initial Pre Proc Eval Procedure: Operation Date: 12/15/23 07:30 Proposed Procedures p Left Total Hip Arthroplasty, Anterior Approach - Jordan Adamson MD Date/Time: 12/15/23 07:05 Surgeon: Jordan Adamson MD Pre Op Diagnosis: oa left hip Patient Data Age: 78 Gender: M Height: 1.65 m Weight: 94.8 kg Last Vital Signs Temp 97.5 F L 12/15/23 06:30 Pulse 62 12/15/23 06:30 Resp 18 12/15/23 06:30 BP 144/66 H 12/15/23 06:30 Pulse Ox 99 12/15/23 06:30 O2 Del Method Room Air 12/15/23 06:30 Allergies Allergy/AdvReac Type Severity Reaction Status Date / Time Antihistamines - Alkylamine AdvReac Intermediate All Verified 12/15/23 06:42 antihistamines cause prostate swelling Home Medications Medication Instructions Recorded Confirmed Type finasteride 5 mg tablet See Rx Instructions .Route 09/15/23 11/27/23 Rx .COMPLEX #90 tabs acetaminophen 650 mg 650 mg PO Q12H PRN Pain 11/27/23 11/27/23 History tablet,extended release (Tylenol Arthritis Pain) tamsulosin 0.4 mg capsule See Rx Instructions .Route 12/11/23 12/15/23 Rx .COMPLEX #90 caps Laboratory Tests 12/15/23 06:16 Blood Type Pending Antibody Screen Pending Patient hx anesthesia problems: other (Urinary retention after prev GA, required catheter. ) Family hx anesthesia problems: none Results Review: All pre-operative results and documents have been reviewed as part of the pre-operative evaluation. [facility] Past Medical History Medical History BPH (benign prostatic hyperplasia) Urinary disorder The patient did have a Martínez catheter but no longer uses a Martínez catheter. Surgical History Surgical History H/O hemorrhoidectomy H/O knee surgery Right knee unicompartmental replacement 08/03/2012 History of cataract surgery S/P total right hip arthroplasty July 16, 2022 - standard approach Family History Family History Father Diabetes mellitus Mother Diabetes mellitus Sibling Diabetes mellitus Other Family history of sleep apnea Social History Social History Social History: The patient lives with his . He has 2 biological children and 1 adopted child. 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 Code status full code Smoking packs per day: 2 Smoking cigarettes per day: 40.0 Years smoked: 40 Smoking pack-years: 80.00 Smoking status: Former smoker Tobacco type: cigarettes Second hand tobacco smoke exposure: No Smoking end date: 02/23/71 Additional smoking assessment comments: DENIES ANY FORM OF TOBACCO USE Alcohol intake: never Substance use: never Substance use type: does not use Do You Feel Safe in your Home?: Yes Lack of Transportation: No Lack of Food: Never True Current Housing: I Have Housing Concerned About Future Housing: No Difficulty Paying Gas/Electric Bills: No Difficulty Paying for Meds: No Currently Unemployed: No Education: Associate Degree Difficulty w/ Childcare or Family Care: No Living arrangements: with family Additional living arrangements comments: Occupation/Education: retired 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 ) Neurological: alert and oriented Last oral intake: >/= 8 hours ASA classification: II Emergent: no Anesthetic plan: proceed Anesthesia type and monitoring: general ETT and standard monitoring Results Review: All pre-operative results and documents have been reviewed as part of the pre-operative evaluation. EKG w NSR, L axis deviation. Pt active w walking 1-2 fos, no cp or sob. Informed Consent: The patient's anesthetic plan and its attendant risks and benefits were discussed with the patient/family/POA. Questions were solicited and answers provided to the satisfaction of the patient/family/POA.
--- NOTE | 2023-12-15 07:13 | WPDHPUPDATE1 ---
History and Physical Update Update Date/Time: 12/15/23 07:13 History and Physical has been reviewed, including an updated exam of the patient. There are NO changes in the patient's condition. Risks, benefits, and alternatives have been discussed and questions answered. Patient agrees to proceed with procedure.
[2023-12-15] MEDS: BETHANECHOL CHLORIDE 10 MG TABLET PO (07:15)
[2023-12-15] MEDS: SODIUM CHLORIDE 0.9% IV 38.7 ML, MORPHINE SULFATE INJ (*CRX) 2 MG, ROPivacaine HCL 1% 2... INFILTRATE (07:33)
[2023-12-15] MEDS: ceFAZolin SODIUM 1 GM VIAL 3 GM (07:33)
[2023-12-15] MEDS: ceFAZolin SODIUM 1 GM VIAL 2 GM IV PUSH (10:15)
[2023-12-15] MEDS: TRANEXAMIC ACID 1,000 MG/10 ML AMPUL 1000 MG IV PUSH (10:20)
--- NOTE | 2023-12-15 10:53 | W.PM.PROC2 ---
Procedure Note - Detailed Date of Procedure 12/15/23 Pre-op Diagnosis oa left hip Post-op Diagnosis Same Procedure Performed Left total hip arthroplasty, direct anterior approach Surgeon Jordan Adamson MD Slitter Scorer Cut Off Operator Leonie Anesthesia General Description of Procedure Patient was brought to the operating room and general anesthesia was administered. He received 2 g of Ancef weight based vancomycin and 1 g of TXA preoperatively. A smaller Martínez catheter was placed without difficulty and I personally assisted with that. The feet were padded boots applied SCDs applied and running during the procedure. The patient was transferred to the [facility] table and the left hip prepped and draped in usual fashion. A 10 cm longitudinal incision was made 3 cm lateral to the ASIS. Dissection was carried down through the subcutaneous fat to the fascia over the tensor fascia ofe which was longitudinally incised along its midportion and elevated off the anterior 1/2 the TFL. Interval between TFL and rectus femoris developed and crossing branches of ascending lateral femoral circumflex vessels were isolated, ligated with suture divided. Retractor was placed anteromedial to the capsule. The hip abducted internally rotated and the gluteus minimus elevated off the lateral capsule. Inverted T capsulotomy was performed and femoral neck osteotomy made according to preoperative templating. Femoral head was removed. It measured 49 mm in diameter. Acetabulum was exposed and labrum excised. Intraoperative x-ray showed the femoral neck cut to be appropriate. A femur was externally rotated and extended and we found that no additional release was necessary for adequate femoral exposure. We did not incise the interval between the conjoined tendon and piriformis or recess the conjoined tendon. The with the leg back in neutral horizontal position externally rotated and traction the acetabulum was exposed and prepared. We medialized with the 44 Reamer and reamed up to 51 mm which gave circumferential contact at the rim. A light reaming with the 52 mm reaming was performed and the 52 pinnacle cup was chosen and impacted at 40? of abduction anteversion matching his anatomy such as the anterior rim of the component was 2 mm under the anterior rim of the acetabulum. The posterior rim of the component was flush with the posterior rim of the acetabular osteophyte. Excellent Press-Fit was achieved a single screw placed in the ilium and the 36 mm inner diameter liner seated fully. Osteophyte inferiorly and posterior laterally was removed. The femur was externally rotated extended and we broached up to a size 5 which proved difficult to seat fully were required a 2nd insertion and this was seated to the leg a femoral neck cut and we trialed with the +5 head trial and leg lengths were as planned offset was appropriate and soft tissue tension was appropriate. Complete torsional stability of the broach was confirmed. The calcar planer was utilized on the medial neck. The size 5 Actis high offset stem was chosen. This seated fully. We trialed with the +5 head which again gave appropriate soft tissue stability and tension. The cobalt chromium stainless steel 36 mm femoral head was impacted onto the clean and dried trunnion after thorough irrigation of the wound with Ancef solution. The hip was reduced stability reconfirmed. Local anesthetic cocktail was injected into the periarticular soft tissues. The vertical limb of the capsulotomy was repaired with 2. Vicryl. The fascia closed with running 1. Vicryl. Drain placed deep in the subQ and skin closed with 2 subcutaneous Vicryl and glue. EBL was 650 cc an received 350 cc of Cell Saver in return. Additional 2 g of Ancef and 1 g of TXA given time wound closure. There were no complications he was transferred postop recovery room in good condition after removal of Martínez catheter which was done in the operating room. [facility] Billing Surgery - Charge Forward: Surgery Billing (Left total hip replacement)
--- NOTE | 2023-12-15 10:57 | PM.OP ---
Procedure Note - Brief Procedure Note - Brief Date of procedure: 12/15/23 oa left hip Procedure performed: Left anterior total hip arthroplasty Surgeon: KRISSY Pacheco Findings: 78-year-old male who underwent left anterior total hip arthroplasty on 12/14. I was involved in the procedure including positioning the patient on the OR table in 1st assisting through the time of surgery. Total time spent was 3-1/2 hours
--- NOTE | 2023-12-15 12:27 | ADMGEN ---
This patient, Nolberto Mooney, was admitted to Medical Room 249-. Patient/family oriented to hospital policies and general routines including ID bracelet, bed and alarms, visiting hours, pain management, procedures, bathroom and other care routines, personal items, smoking policy, room service/diet, and visiting hours. Information on how to activate the Rapid Response Team has been discussed. Patient/Family are encouraged to report perceived risks to care and to ask questions if they do not understand what they are told or what they should do.
[2023-12-15] MEDS: SODIUM CHLORIDE 0.9% IV 1,000 ML 125 ML IV CONT (13:26)
[2023-12-15] MEDS: oxyCODONE HCL (*CRX) 2.5 MG TAB IR PO ×3 (13:28→21:27)
[2023-12-15] MEDS: ACETAMINOPHEN 325 MG TABLET 650 MG PO ×3 (13:28→21:27)
[2023-12-15] MEDS: VANCOMYCIN 1,000 MG/NS 250 ML 1,000 MG/250 ML BAG 150 MG IVPB (15:23)
--- NOTE | 2023-12-15 15:30 | P.CONIM_ITS ---
Assessment and Plan Assessment and plan (1) Primary osteoarthritis of left hip: Code(s): M16.12 - Unilateral primary osteoarthritis, left hip Status: Acute Assessment and Plan: Postoperative day 0 status post left total hip arthroplasty. Wound care, pain control, and DVT prophylaxis deferred to primary service. (2) Benign prostatic hyperplasia: Code(s): N40.0 - Benign prostatic hyperplasia without lower urinary tract symptoms Status: Acute Assessment and Plan: Continue bethanechol, finasteride, and tamsulosin P.r.n. bladder scan to monitor for urinary retention. Plan Thank you for allowing us to participate in this patient's care. Please do not hesitate to contact us with any questions. HPI Date of Consult Consult date: 12/15/23 Requesting Physician: Jordan Adamson MD Primary Care Provider: Javad Finn MD Consult Narrative Reason for consult: medical management Narrative: This is a very pleasant 78-year-old male with osteoarthritis and benign prostatic hyperplasia with history of urinary retention whom the hospitalist service has been consulted for help managing his medical conditions postoperativ isidoro. He reports longstanding pain in his left hip which has not been amenable to conservative outpatient treatment and he elected for replacement today. His surgery was performed under general anesthesia with no immediate complications documented an estimated blood loss of 650 mL with 350 mL of Cell Saver returned. Postoperatively he has done remarkably well. He has minimal pain and has been up walking to the bathroom without any issues. Earlier in the day his blood pressures were at the lower end of normal but have since improved. Initially he was having difficulties urinating but feels as though he completely emptied his bladder this evening. He does have a history of urinary retention following surgery and was started on bethanechol prior to surgery by his primary care provider and he is supposed to take that for the next few weeks. He denies fever, chills, sweats, chest pain, shortness a breath, nausea, and vomiting. Review of Systems Review of Systems: 12 systems were reviewed and are negativ e except for as per HPI. [facility] Past Medical History Medical History (Updated 12/15/23 @ 16:27 by Mitzy Vilchis PA-C) Benign prostatic hyperplasia Surgical History Surgical History (Updated 12/15/23 @ 16:27 by Mitzy G Gerling, PA-C) History of cataract surgery History of hemorrhoidectomy History of prosthetic unicompartmental arthroplasty of right knee (08/03/12) History of total left hip arthroplasty (12/15/23) anterior approach History of total right hip arthroplasty (07/16/22) standard approach Family History Family History Father Diabetes mellitus Mother Diabetes mellitus Sibling Diabetes mellitus Other Family history of sleep apnea Social History Social History (Updated 12/15/23 @ 16:28 by Mitzy Vilchis PA-C) Social History: Surrogate medical decision maker: Swathi Mooney, spouse. Code status: Full code. Smoking packs per day: 2 Smoking cigarettes per day: 40.0 Years smoked: 40 Smoking pack-years: 80.00 Smoking status: Former smoker Tobacco type: cigarettes Second hand tobacco smoke exposure: No Smoking end date: 02/23/71 Alcohol intake: never Substance use: never Substance use type: does not use Do You Feel Safe in your Home?: Yes Lack of Transportation: No Lack of Food: Never True Current Housing: I Have Housing Concerned About Future Housing: No Difficulty Paying Gas/Electric Bills: No Difficulty Paying for Meds: No Currently Unemployed: No Education: Associate Degree Difficulty w/ Childcare or Family Care: No Living arrangements: with family Additional living arrangements comments: Lives with spouse in [place]. 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 Spiritual care concerns: No Meds Home Medications and Allergies Home Medications Medication Instructions Recorded Confirmed Type finasteride 5 mg tablet See Rx Instructions .Route 09/15/23 11/27/23 Rx .COMPLEX #90 tabs acetaminophen 650 mg 650 mg PO Q12H PRN Pain 11/27/23 11/27/23 History tablet,extended release (Tylenol Arthritis Pain) tamsulosin 0.4 mg capsule See Rx Instructions .Route 12/11/23 12/15/23 Rx .COMPLEX #90 caps bethanechol chloride 10 mg tablet 10 mg PO DAILY 12/15/23 12/15/23 History Allergies Allergy/AdvReac Type Severity Reaction Status Date / Time Antihistamines - Alkylamine AdvReac Intermediate All Verified 12/15/23 06:42 antihistamines cause prostate swelling Vital Signs Vital Signs - 24 hr 12/15/23 06:30 12/15/23 10:56 12/15/23 11:10 Temperature 97.5 F L 97.6 F Pulse Rate 62 86 77 Respiratory Rate 18 14 12 Blood Pressure 144/66 H 137/58 L 127/53 L Pulse Oximetry 99 100 98 Oxygen Delivery Room Air Simple Face Mask Simple Face Mask Oxygen Flow Rate 8 8 12/15/23 11:25 12/15/23 11:40 12/15/23 11:55 Temperature Pulse Rate 75 67 72 Respiratory Rate 16 14 17 Blood Pressure 127/66 119/61 117/56 L Pulse Oximetry 98 95 94 Oxygen Delivery Room Air Room Air Room Air Oxygen Flow Rate 12/15/23 13:49 12/15/23 12:02 12/15/23 12:17 Temperature 94.8 F L 96.8 F L Pulse Rate 74 69 Respiratory Rate 12 12 Blood Pressure 122/63 127/46 L Pulse Oximetry 94 94 Oxygen Delivery Room Air Oxygen Flow Rate 12/15/23 12:47 12/15/23 13:47 Temperature 97.0 F L 97.5 F L Pulse Rate 75 92 Respiratory Rate 12 12 Blood Pressure 110/46 L 107/57 L Pulse Oximetry 93 96 Oxygen Delivery Oxygen Flow Rate Exam Narrative: General: Well-developed male appearing a bit younger than his stated age sitting up in bed. Weight: 94.8 kg. BMI: 34.8. HEENT: PERRL, EOMI. Sclera anicteric. Oral mucosa moist. Neck: Supple. Respiratory: Lungs are clear to auscultation bilaterally. Cardiovascular: Regular rate and rhythm with S1-S2. Gastrointestinal: Abdomen is soft, nontender, and nondistended with positive bowel sounds. Skin: Warm and dry. No rash or lesions on limited exam. Extremities: No cyanosis, clubbing, or edema. Radial and pedal pulses intact. Musculoskeletal: Left hip dressing is clean, dry, and intact. Hemovac in place. He is neurovascularly intact distal to the surgical site. Neurological: Alert. Cranial nerves 2-12 grossly intact. No gross focal deficits to casual conversation. Psychiatric: Pleasant and cooperative with normal mood and affect. Judgment and insight intact.
[2023-12-15] MEDS: SENNA/DOCUSATE SODIUM TABLET 2 TAB PO (18:03)
[2023-12-15] MEDS: FINASTERIDE 5 MG TABLET BY MOUTH (21:27)
[2023-12-15] MEDS: TAMSULOSIN HCL 0.4 MG CAPSULE BY MOUTH (21:27)
[2023-12-15] MEDS: FAMOTIDINE 20 MG TABLET PO (21:27)
[2023-12-16 00:12] VITALS: BP 131/48; PULSE 62; RESP 20; TEMP 36.7; O2SAT 96
[2023-12-16] MEDS: ACETAMINOPHEN 325 MG TABLET 650 MG PO ×3 (00:32→08:10)
[2023-12-16] MEDS: oxyCODONE HCL (*CRX) 2.5 MG TAB IR PO ×3 (00:32→08:11)
[2023-12-16] MEDS: VANCOMYCIN 1,000 MG/NS 250 ML 1,000 MG/250 ML BAG 250 MG IVPB (02:27)
[2023-12-16 04:38] VITALS: BP 125/48; PULSE 62; RESP 20; TEMP 36.7; O2SAT 94
[2023-12-16] MEDS: ceFAZolin 2 GM/D5W 50 ML 2 GM/50 ML BAG IVPB (05:39)
[2023-12-16 05:49] LABS: Basophils Percent Auto 0.2 % (0.2-1.2); Hematocrit 36.7 % (42.0-52.0); Hemoglobin 12.1 g/dL (14.0-18.0); Immature Granulocyte Absolute 0.08 K/mm3 (0.00-0.031); Immature Granulocyte Percent A 0.7 % (0-0.5); Lymphocytes Absolute Auto 1.52 K/mm3 (0.9-3.2); Lymphocytes Percent Auto 12.9 % (18.3-44.2); Mean Corpuscular Hemoglobin 30.9 pg (26-34); Mean Corpuscular Volume 93.6 fl (80-100); Mean Platelet Volume 10.5 fl (7.4-10.4); Monocytes Absolute Auto 0.7 K/mm3 (0.1-0.6); Monocytes Percent Auto 5.9 % (2.6-8.5); Neutrophils Absolute Auto 9.5 K/mm3 (1.3-6.7); Neutrophils Percent Auto 80.3 % (45.5-73.1); Platelet Count Result 216 k/mm3 (150-375); Red Blood Count 3.92 M/mm3 (4.6-6.20); Red Cell Distribution Width 12.4 % (11.5-14.5); White Blood Count 11.8 K/mm3 (4.5-10.0)
[2023-12-16 06:01] LABS: Anion Gap 9 mmol/L (4-12); Blood Urea Nitrogen 12 mg/dL (9-20); Calcium 8.5 mg/dL (8.4-10.2); Carbon Dioxide 23 mmol/L (22-30); Chloride 104 mmol/L (98-107); Estimated CRCL calculation 66 ml/min; Estimated Glomerular Filt Rate > 60; Glucose 135 mg/dL (65-110); Magnesium 1.8 mg/dL (1.6-2.3); Potassium 3.8 mmol/L (3.4-5.0); Sodium 136 mmol/L (137-145)
--- NOTE | 2023-12-16 07:25 | P.PNOP_ITS ---
Subjective Subjective Date/Time Seen: 12/16/23 07:25 Interval history: Postop day 1 patient is alert. He is afebrile vital signs are stable. Patient has been urinating since surgery yesterday. He was up with therapy walking and was very comfortable. He has been urinating overnight, he states he has a strong stream and no complications. He is very happy about this. Drain has been removed. Dressing is dry and intact. Neurovascularly is intact. Morning labs are noted. Overall patient is doing very well and is eager to go home. He will work with therapy again this morning and once IV antibiotics been completed be discharged home later this morning. Objective Data Vital Signs Vital Signs: Vital Signs - 24 hr 12/15/23 10:56 12/15/23 11:10 12/15/23 11:25 Temperature 97.6 F Pulse Rate 86 77 75 Respiratory Rate 14 12 16 Blood Pressure 137/58 L 127/53 L 127/66 Pulse Oximetry 100 98 98 Oxygen Delivery Simple Face Mask Simple Face Mask Room Air Oxygen Flow Rate 8 8 12/15/23 11:40 12/15/23 11:55 12/15/23 13:49 Temperature Pulse Rate 67 72 Respiratory Rate 14 17 Blood Pressure 119/61 117/56 L Pulse Oximetry 95 94 Oxygen Delivery Room Air Room Air Room Air Oxygen Flow Rate 12/15/23 12:02 12/15/23 12:17 12/15/23 12:47 Temperature 94.8 F L 96.8 F L 97.0 F L Pulse Rate 74 69 75 Respiratory Rate 12 12 12 Blood Pressure 122/63 127/46 L 110/46 L Pulse Oximetry 94 94 93 Oxygen Delivery Oxygen Flow Rate 12/15/23 13:47 12/15/23 12:15 12/15/23 17:47 Temperature 97.5 F L 97.4 F L Pulse Rate 92 90 Respiratory Rate 12 12 Blood Pressure 107/57 L 141/62 H Pulse Oximetry 96 96 Oxygen Delivery Room Air Oxygen Flow Rate 12/15/23 20:14 12/15/23 20:00 12/16/23 00:12 Temperature 97.8 F 98.0 F Pulse Rate 70 62 Respiratory Rate 20 20 Blood Pressure 148/62 H 131/48 L Pulse Oximetry 68 L 96 Oxygen Delivery Room Air Oxygen Flow Rate 12/16/23 04:38 12/15/23 21:20 Temperature 98.1 F Pulse Rate 62 Respiratory Rate 20 Blood Pressure 125/48 L Pulse Oximetry 94 94 Oxygen Delivery Room Air Oxygen Flow Rate Intake/Output Intake/Output: Intake & Output 12/13/23 12/14/23 12/15/23 12/16/23 23:59 23:59 23:59 23:59 Intake Total 1999 690 Output Total 30 Balance 1999 660 Meds/Results Medications: Active Medications Generic Name Dose Route Start Last Admin Trade Name Freq PRN Reason Stop Dose Admin Acetaminophen 650 mg 12/15/23 13:00 12/16/23 05:38 Acetaminophen 325 Mg Tablet PO 650 mg Q4H LORETA Administration Apixaban 2.5 mg 12/16/23 09:00 Apixaban 2.5 Mg Tablet PO Q12HR [facility] Bethanechol Chloride 10 mg 12/16/23 16:30 Bethanechol Chloride 10 Mg Tablet PO ACHS [facility] Cefdinir 300 mg 12/16/23 09:00 Cefdinir 300 Mg Capsule PO Q12HR [facility] Celecoxib 200 mg 12/16/23 09:00 Celecoxib 200 Mg Capsule PO DAILY [facility] Famotidine 20 mg 12/15/23 21:00 12/15/23 21:27 Famotidine 20 Mg Tablet PO 20 mg Q12HR LORETA Administration Finasteride 5 mg 12/15/23 21:00 12/15/23 21:27 Finasteride 5 Mg Tablet BY MOUTH 5 mg QHS LORETA Administration Morphine Sulfate 2 mg 12/15/23 12:02 Morphine Sulfate (*Crx) 2 Mg/Ml Inj IV PUSH Q2H PRN Breakthrough Pain Rated 4-6 or NPO Naloxone HCl 0.1 mg 12/15/23 12:02 Naloxone Hcl 0.4 Mg/Ml Vial IV PUSH Q2M PRN Opiate Reversal Ondansetron HCl 4 mg 12/15/23 12:02 Ondansetron Inj 4 Mg/2 Ml Vial IV PUSH Q4H PRN Nausea And Vomiting Oxycodone HCl 2.5 mg 12/15/23 13:00 12/16/23 05:38 Oxycodone Hcl (*Crx) 2.5 Mg Tab Ir PO 2.5 mg Q4H LORETA Administration Oxycodone HCl 2.5 mg 12/15/23 12:02 Oxycodone Hcl (*Crx) 2.5 Mg Tab Ir PO Q4H PRN Pain Rated 4-6 Polyethylene Glycol 17 gm 12/16/23 09:00 Polyethylene Glycol 3350 17 Gm Powd.Pack PO QAM LORETA Senna/Docusate Sodium 2 tab 12/15/23 17:00 12/15/23 18:03 Senna/Docusate Sodium Tablet PO 2 tab BID LORETA Administration Tamsulosin HCl 0.4 mg 12/15/23 21:00 12/15/23 21:27 Tamsulosin Hcl 0.4 Mg Capsule BY MOUTH 0.4 mg QHS LORETA Administration Radiology Results: ITS Impressions Hip/Pelvis X-Ray 12/15/23 11:04 IMPRESSION: 1. Bilateral total hip arthroplasties in near-anatomic alignment. Intraoperative X-Ray 12/15/23 11:05 IMPRESSION: 1. Total left hip arthroplasty in near-anatomic alignment. Labs Labs: Laboratory Results - last 24 hr 12/15/23 12/16/23 06:16 05:20 WBC 11.8 H RBC 3.92 L Hgb 12.1 L D Hct 36.7 L MCV 93.6 MCH 30.9 MCHC 33.0 RDW 12.4 Plt Count 216 MPV 10.5 H Immature Gran % (Auto) 0.7 H Neut % (Auto) 80.3 H Lymph % (Auto) 12.9 L [place] % (Auto) 5.9 Eos % (Auto) 0.0 Baso % (Auto) 0.2 Lymph # (Auto) 1.52 [place] # (Auto) 0.7 H Eos # (Auto) 0.0 Baso # (Auto) 0.0 Abs Immat Gran (auto) 0.08 H Absolute Neuts (auto) 9.5 H Absolute Nucleated RBC 0.000 Nucleated RBC % 0.0 Sodium 136 L Potassium 3.8 Chloride 104 Carbon Dioxide 23 Anion Gap 9 BUN 12 Creatinine 0.90 Estim Creat Clear Calc 66 Estimated GFR > 60 Glucose 135 H Calcium 8.5 Magnesium 1.8 Antibody Screen Negative
--- NOTE | 2023-12-16 07:30 | PM.DS ---
DS: Admitting Diagnosis Discharge Date 12/15 Admitting Diagnosis Left hip DJD DS: Discharge Diagnosis Discharge Diagnosis (1) Primary osteoarthritis of left hip: Code(s): M16.12 - Unilateral primary osteoarthritis, left hip Status: Acute DS: Summary Hospital Course Hospital Course: 78-year-old male who underwent left anterior total hip arthroplasty on 12/14. He underwent the procedure without complications. Postoperatively he has been afebrile vital signs are stable. He was up walking with physical therapy the day of surgery. Pain is well controlled. Patient is been urinating since surgery without any complications. Did have problems with urinary retention when he had his right hip replaced several years ago. He has been on his tamsulosin and finasteride he has also been on bethanechol. He has been having no issues urination. He states he has a strong stream and has been urinating frequently. Pain is well controlled. He is on oxycodone 2.5 mg as well as Tylenol every 4 hours. He is on Eliquis for DVT prophylaxis. Weightbearing as tolerated. He is on Celebrex 100 mg for the 1st 10 days for HO prophylaxis. He is going to be discharged home on 12/15. He was advised to keep leg elevated prevent swelling. He will also go home with Senokot and MiraLax for constipation. Patient was advised any questions or concerns once he is home he is to call the office otherwise we will see him his appointments. Hemoglobin is 12.1 and platelets are 216 the morning of postop day. Chem panel was all within normal limits. Time Spent with Patient Time attestation: Total time spent providing and/or coordinating discharge services: DS: Data Data Completed and Pending Labs on day of discharge: Labs from last 24 hours 12/16/23 12/15/23 05:20 06:16 WBC 11.8 H RBC 3.92 L Hgb 12.1 L D Hct 36.7 L MCV 93.6 MCH 30.9 MCHC 33.0 RDW 12.4 Plt Count 216 MPV 10.5 H Immature Gran % (Auto) 0.7 H Neut % (Auto) 80.3 H Lymph % (Auto) 12.9 L [place] % (Auto) 5.9 Eos % (Auto) 0.0 Baso % (Auto) 0.2 Lymph # (Auto) 1.52 [place] # (Auto) 0.7 H Eos # (Auto) 0.0 Baso # (Auto) 0.0 Abs Immat Gran (auto) 0.08 H Absolute Neuts (auto) 9.5 H Absolute Nucleated RBC 0.000 Nucleated RBC % 0.0 Sodium 136 L Potassium 3.8 Chloride 104 Carbon Dioxide 23 Anion Gap 9 BUN 12 Creatinine 0.90 Estim Creat Clear Calc 66 Estimated GFR > 60 Glucose 135 H Calcium 8.5 Magnesium 1.8 Antibody Screen Negative Discharge Plan Discharge Patient Disposition: Home, Self-Care Discharge Instructions: JORDAN ADAMSON M.D [facility] [address] [address] [place] [address] POST-OPERATIVE DISCHARGE INSTRUCTIONS ANTERIOR TOTAL HIP ARTHROPLASTY 1. Move toes/feet up and down every hour while awake. 2. Be up walking every hour while awake. 3. Use walker operation agent if instructed to use walker operation agent.When you are allowed to use the cane, use the cane in the opposite hand. 4. When resting, do not rest in the chair. Rather, lie on your back, with back flat, and the leg elevated above heart to minimize swelling. You may put a pillow under your head. Do not rest in a chair. Resting in the chair results in swelling in the leg. Significant swelling could indicate a blood clot and if this occurs, call the office (or go to the ER) to have a venous ultrasound performed. Its ok to sit in the chair to eat and use the toilet and to receive a guest but sitting in a chair will cause your leg to swell. so try to minimize sitting in a chair. 5. Wound Care: Apply a folded 4x4 sponge to incision and hold with crossing strips of 1 inch Transpore tape. 6. May shower. Remove dressing before shower and reapply dressing after shower. Stand Alone Forms: General Discharge Instructions Follow-up/Referrals: Jordan Adamson MD [Physician] - Keep Reg. Scheduled Appt. Discharge Medications: New acetaminophen 325 mg Tablet 650 mg PO Q4H Qty: 90 0RF Eliquis 2.5 mg Tablet 2.5 mg PO Q12HR Qty: 70 0RF sennosides-docusate sodium [Senokot-S] 8.6-50 mg Tablet 2 tab-cap PO BID Qty: 60 0RF celecoxib [Celebrex] 100 mg Capsule 100 mg PO DAILY@0800 Qty: 10 0RF cefdinir 300 mg Capsule 300 mg PO Q12HR Qty: 14 0RF polyethylene glycol 3350 [Miralax] 17 gram Powder In Packet 17 g PO QAM Qty: 30 0RF oxycodone 5 mg tablet 2.5 mg PO Q4H PRN (Reason: pain) Qty: 20 0RF Continued bethanechol chloride 10 mg tablet 10 mg PO DAILY finasteride 5 mg tablet See Rx Instructions .ROUTE .COMPLEX Qty: 90 1RF Dose Instruction: TAKE 1 TABLET BY MOUTH DAILY Patient Comments: TAKES AT HS Rx Instructions: TAKE 1 TABLET BY MOUTH DAILY tamsulosin 0.4 mg capsule See Rx Instructions .ROUTE .COMPLEX Qty: 90 1RF Dose Instruction: TAKE 1 CAPSULE BY MOUTH DAILY Patient Comments: TAKES AT HS Rx Instructions: TAKE 1 CAPSULE BY MOUTH DAILY No Action acetaminophen [Tylenol Arthritis Pain] 650 mg Tablet Extended Release 650 mg PO Q12H PRN (Reason: Pain) Attending physician on admission: Jordan Adamson
[2023-12-16 07:56] VITALS: BP 139/51; PULSE 61; RESP 12; TEMP 36.7; O2SAT 97
[2023-12-16] MEDS: CELECOXIB 100 MG CAPSULE PO (08:10)
[2023-12-16] MEDS: SENNA/DOCUSATE SODIUM TABLET 2 TAB PO (08:10)
[2023-12-16] MEDS: polyethylene glycoL 3350 17 GM POWD.PACK PO (08:11)
[2023-12-16] MEDS: CEFDINIR 300 MG CAPSULE PO (08:11)
[2023-12-16] MEDS: APIXABAN 2.5 MG TABLET PO (08:11)
[2023-12-16] MEDS: FAMOTIDINE 20 MG TABLET PO (08:11)
== END 2023-12-16 10:40 | disposition home or self-care (01) ==
LOC: ANHSURGERY 05:46 → ANH2MED 12:12
PROVIDERS: Physician Assistant Surgical; PCP Family Medicine; Visit Provider Orthopaedic Surgery
PROC: (CPT 27130; principal; 2023-12-15 07:30)
DX: M16.12 Unilateral primary osteoarthritis, left hip (principal); N40.0 Benign prostatic hyperplasia without lower urinary tract symptoms; E66.9 Obesity, unspecified; Z68.37 Body mass index [BMI] 37.0-37.9, adult; Z98.890 Other specified postprocedural states; Z87.891 Personal history of nicotine dependence; Z87.448 Personal history of other diseases of urinary system
CPT/HCPCS: 27130; 36415; 73501; 80048; 83735; 85025; 86850; 86900; 86901; 97110; 97161; 97165; 97530; 97535; 99199; A9270; C1776; J0171; J0690; J1100; J2003; J2270; J2405; J2704; J2795; J3010; J3370; J7030; J7120

== ENCOUNTER 2024-06-30 08:16 | Emergency (ER) | payer MEDICARE, SELFPAY ==
--- NOTE | ~2024-06-30 | XR_ITS ---
EXAMINATION: XR chest 2V DATE: 06/30/2024 08:43 INDICATION: Shortness of breath, cough, fever and left lower lobe crackles TECHNIQUE: PA and lateral views of the chest were obtained. COMPARISON: Chest radiograph dated 07/20/2012 FINDINGS: Calcified nodule at the right costophrenic angle consistent with old granulomatous disease. No other airspace opacities, pulmonary edema, pleural effusion or pneumothorax. The cardiomediastinal silhouet te is normal. Visualized bones and soft tissues are unremarkable. IMPRESSION: 1. No acute cardiopulmonary disease. Reviewed, dictated and finalized at location A.
--- OUTSIDE RECORDS SUMMARY | 2024-06-30 08:22 | XMS_ITS | CONTINUITY OF CARE DOCUMENT ---
Author Name hernando chuychikis Address Unknown Organization [facility] Address [address] [address] [place] [address] Phone [phone] Care Team Providers Care Room Service Manager Name Role Phone Minh GAMA, Kaycee Unavailable [phone] KRISTEN GAMA, AZALEA Figueredo Unavailable [phone] KAELYN GAMA, LAN Wells Unavailable INSURANCE PROVIDERS Payer name Policy type / Coverage type [place] red republican ID [facility] Blue [facility] [id number] [place] [id number]
--- OUTSIDE RECORDS SUMMARY | 2024-06-30 08:22 | XMS_ITS | Clinical Summary ---
Author Organization [facility] Address [address] [place] [id number] Care Team Providers Care Uniform Cap Operator Name Role Phone Unavailable Primary Care Provider Unavailabl e Social History Tobacco Use Types Packs/Day Years Used Date Smoking Tobacco: Never Assessed Sex and Gender Information Value Date Recorded Sex Assigned at Not on file Legal Sex Male 5:57 PM CDT Gender Identity Not on file Sexual Orientation Not on file Plan of Treatment Health Maintenance Due Date Last Done Comments Hepatitis C 1963 DTaP, Tdap and Td Vaccines ( 1 - Tdap) 1965 Pneumococcal Vaccine: 50+ Ye ars (1 of 1 - PCV) 1996 Zoster Vaccines (2 of 3) 04/20/2010 02/23/2010 Annual Medicare Wellness Visit 11/16/2011 RSV Immunization or 60+ Years (1 - 1-dose 75+ series) 2021 COVID-19 Vaccine (2023-2 5 season) 2023 Meningococcal B Vaccine Aged Out No l onger eligible based on patient's age to complete this topic Meningococcal Vaccine Aged Out No myra levi eligible based on patient's age to complete this topic RSV Immunizations Under 20 Months Aged Out No longer eligible based on patient's age to complete this topic Insurance MEDICARE [facility]
[2024-06-30 08:26] VITALS: BP 169/67; PULSE 78; RESP 18; TEMP 36.4; O2SAT 97
--- NOTE | 2024-06-30 08:36 | ED.URI ---
HPI - URI/Sore Throat General Chief Complaint: Upper Respiratory Infection Stated Complaint: cough/fever Time Seen by Provider: 06/30/24 08:20 Source: patient Mode of arrival: ambulatory Limitations: no limitations History of Present Illness HPI Narrative: Nolberto is a 78-year-old male patient presenting to the clinic today with complaints of productive cough with yellow phlegm, shortness of breath, feeling feverish, chills, and body aches x4 days. He reports shortness of breath is worse on exertion. Denies chest pain or sore throat. Related Data Home Medications ?Medication ?Instructions ?Recorded ?Confirmed ?Last Taken ?Type acetaminophen 650 mg 650 mg PO Q12H PRN Pain 11/27/23 02/08/24 12/14/23 History tablet,extended release (Tylenol Arthritis Pain) Allergies Allergy/AdvReac Type Severity Reaction Status Date / Time Antihistamines - Alkylamine AdvReac Intermediate All Verified 06/30/24 08:40 antihistamines cause prostate swelling Review of Systems Review of Systems: Pertinent positives per HPI. Patient denies any fever, chills, rash, headache, visual changes, dizziness, cough, shortness of breath, chest pain, palpitations, nausea, vomiting, diarrhea, constipation, abdominal pain, or any urinary issues. [facility] Past Medical History Medical History Benign prostatic hyperplasia Surgical History Surgical History History of total right hip arthroplasty (07/16/22) standard approach History of total left hip arthroplasty (12/15/23) anterior approach History of prosthetic unicompartmental arthroplasty of right knee (08/03/12) History of hemorrhoidectomy History of cataract surgery Family History Family History Father Diabetes mellitus Mother Diabetes mellitus Sibling Diabetes mellitus Other Family history of sleep apnea Social History Social History Social History: Surrogate medical decision maker: Swathi Mooney, spouse. Code status: Full code. Smoking packs per day: 2 Smoking cigarettes per day: 40.0 Years smoked: 40 Smoking pack-years: 80.00 Smoking status: Former smoker Tobacco type: cigarettes Second hand tobacco smoke exposure: No Smoking end date: 02/23/71 Alcohol intake: never Substance use: never Substance use type: does not use Current Housing: Decline to Answer Concerned About Future Housing: Decline to Answer Difficulty Paying Gas/Electric Bills: Decline to Answer Difficulty Paying for Meds: Decline to Answer Currently Unemployed: Decline to Answer Education: Decline to Answer Difficulty w/ Childcare or Family Care: Decline to Answer Living arrangements: with family Additional living arrangements comments: Lives with spouse in [place]. 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 Spiritual care concerns: No Comments At the time of my signature, I reviewed and agree with the nursing past medical, surgical, social, and family history. There is no relevant family history pertinent to the patient complaint. Exam Narrative: General: Well-developed, well nourished, in no apparent distress Head: Normocephalic, atraumatic Eyes: Pupils equally round and reactive to light bilaterally, EOM intact, sclera and conjunctive clear, no discharge, lids normal Ears: TMs intact and congested, ear canals clear, no drainage, grossly hearing normal. Nose: Nares patent, clear nasal discharge, mild inflammation, no sinus tenderness. Mouth: Oral pharynx without lesions or masses, good dentition, MMM. Postnasal drip Neck: Supple, trachea midline, no enlargement of anterior or posterior cervical nodes, no thyroid masses or goiter palpable. Cardio: Regular rate and rhythm, s1 and s2 normal, no murmur appreciated. Resp: Crackles in the left lower lobe, faint wheezing in the right upper lobe no rhonchi, or rubs Course Course Emergency Course: Portions of this record may have been created with voice recognition software. Level of Care: Express Care Visit Vital Signs Vital signs: Vital Signs Temperature 36.4 C L 06/30/24 08:26 Pulse Rate 78 06/30/24 08:26 Respiratory Rate 18 06/30/24 08:26 Blood Pressure 169/67 H 06/30/24 08:26 Pulse Oximetry 97 06/30/24 08:26 Oxygen Delivery Room Air 06/30/24 08:26 Temperature 36.4 C L 06/30/24 08:26 Pulse Rate 78 05/08/25 08:26 Respiratory Rate 18 06/30/24 08:26 Blood Pressure 169/67 H 06/30/24 08:26 Pulse Oximetry 97 06/30/24 08:26 Oxygen Delivery Room Air 06/30/24 08:26 Vital signs reviewed MDM - URI/Sore Throat MDM Narrative Medical decision making narrative: At the time of visit patient is resting comfortably on the exam table. Patient appears to be nontoxic. Labs: COVID and influenza testing was performed and negative in the clinic today. Diagnostics: Chest x-ray was performed and and is negative for any sign of pneumonia or acute cardiopulmonary process.. Plan: I suspect patient has bronchitis. Prescription for albuterol inhaler, azithromycin, and prednisone was sent to the pharmacy. Supportive measures were discussed with the patient and they voiced understanding discharge instructions and agrees to treatment plan. Return precautions reviewed Differential Diagnosis Differential diagnosis: Likely upper respiratory infection, otitis media, sinusitis, viral infection, bronchitis, influenza, pharyngitis and other (COVID) Imaging Data Radiologist's impression: ITS Impressions Chest X-Ray 06/30/24 08:46 IMPRESSION: 1. No acute cardiopulmonary disease. Discharge Plan Discharge Clinical Impression: Acute bronchitis Qualifiers: Bronchitis organism: unspecified organism Qualified Code(s): J20.9 - Acute bronchitis, unspecified Patient Disposition: Home Condition: Stable Instructions: Antibiotic Form, Acute Bronchitis (ED) Additional Instructions: Take prescription medications only as prescribed-albuterol inhaler, Tessalon Perles, azithromycin, and prednisone Increase fluids and stay well hydrated Tylenol/motrin for pain/fever Flonase and OTC antihistamines as directed Vicks vapor rub to open sinuses Sinus rinses for congestion Cepacol spray, cough drops, throat lozenges, warm tea with honey/lemon, gargle salt water to soothe throat BRAT diet for diarrhea Clear liquids x 24 hours then advance as tolerated for nausea/vomiting Go to the ED if you develop a worsening in your condition- high fever not controlled by Tylenol or Motrin, dehydration, weakness, lethargy, shortness of breath, or chest pain. Follow up with your PCP in 3-5 days if symptoms persist. Patient Language: Salvadorean Prescriptions: New azithromycin 250 mg tablet See Rx Instructions .ROUTE .COMPLEX Qty: 6 0RF Rx Instructions: For 250 mg dose pack: take 500 mg today (day 1), then 250 mg for 4 days (days 2-5) prednisone 20 mg tablet 40 mg PO DAILY 5 Days Qty: 10 0RF albuterol sulfate 90 mcg/actuation HFA aerosol inhaler 2 puff inhalation Q4-6H PRN (Reason: shortness of breath or wheezing) 30 Days Qty: 8.5 0RF benzonatate 200 mg capsule 200 mg PO TID 7 Days Qty: 21 0RF No Action acetaminophen [Tylenol Arthritis Pain] 650 mg Tablet Extended Release 650 mg PO Q12H PRN (Reason: Pain) finasteride 5 mg tablet See Rx Instructions .ROUTE .COMPLEX Qty: 90 0RF Dose Instruction: TAKE 1 TABLET BY MOUTH DAILY Rx Instructions: TAKE 1 TABLET BY MOUTH DAILY tamsulosin 0.4 mg capsule See Rx Instructions .ROUTE .COMPLEX Qty: 90 0RF Dose Instruction: TAKE 1 CAPSULE BY MOUTH DAILY Rx Instructions: TAKE 1 CAPSULE BY MOUTH DAILY Follow-up/Referrals: Javad Finn MD [Primary Care Provider] - Time of Disposition: 08:51 Quality NIHSS Nursing Documentation ED NIHSS nursing documentation: reviewed/agree
[2024-06-30 08:52] LABS: EDCOVIDSCREEN Negative (Negative); EDINFLUASCREEN Negative (Negative); EDINFLUBSCREEN Negative (Negative)
== END 2024-06-30 08:59 | disposition home or self-care (01) ==
PROVIDERS: Emergency Provider Nurse Practitioner Family; PCP Family Medicine
DX: J20.9 Acute bronchitis, unspecified (principal); Z20.822 Contact with and (suspected) exposure to COVID-19; Z87.891 Personal history of nicotine dependence; N40.0 Benign prostatic hyperplasia without lower urinary tract symptoms; Z96.653 Presence of artificial knee joint, bilateral
CPT/HCPCS: 71046; 87426; 87804; 99213; G0463

== ENCOUNTER 2024-11-03 17:18 | Emergency (ER) | payer MEDICARE, SELFPAY ==
--- NOTE | ~2024-11-03 | XR_ITS ---
EXAMINATION: XR chest 2V 11/03/2024 17:50 INDICATION: Cough. Fever TECHNIQUE:Frontal and lateral images of the chest were obtained. COMPARISON: 06/30/2024 FINDINGS: Heart is mildly enlarged, unchanged. No pneumothorax. No pleural effusion. No free air under the diaphragm. Small opacities in the lower lungs. IMPRESSION: 1: Small opacities in the mid and lower lungs which represents atelectasis/scarring or infiltrates. Reviewed, dictated and finalized at location Q. IMPRESSION: 1: Small opacities in the mid and lower lungs which represents atelectasis/sca rring or infiltrates.
--- OUTSIDE RECORDS SUMMARY | 2024-11-03 17:22 | XMS_ITS | Clinical Summary ---
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
[2024-11-03 17:28] VITALS: BP 148/80; PULSE 102; RESP 18; TEMP 38.1; O2SAT 98
--- NOTE | 2024-11-03 17:45 | ED.URI ---
HPI - URI/Sore Throat General Chief Complaint: Upper Respiratory Infection Stated Complaint: Fever / cough Time Seen by Provider: 11/03/24 17:34 Source: patient, family () and RN notes reviewed Mode of arrival: ambulatory Limitations: no limitations History of Present Illness HPI Narrative: Patient presents today complaining of a fever with a T-max of 100.4? at home, chills, sweats, cough, dizziness, right ear pain. Symptoms began yesterday. Denies shortness of breath or chest pain. He took a dose of Tylenol 2 hours prior to arrival, which he states has helped him feel slightly better. Denies history of asthma or COPD. Related Data Home Medications ?Medication ?Instructions ?Recorded ?Confirmed ?Last Taken ?Type acetaminophen 650 mg 650 mg PO Q12H PRN Pain 11/27/23 02/08/24 12/14/23 History tablet,extended release (Tylenol Arthritis Pain) Allergies Allergy/AdvReac Type Severity Reaction Status Date / Time Antihistamines - Alkylamine AdvReac Intermediate All Verified 11/03/24 17:28 antihistamines cause prostate swelling PMFSH Past Medical History Medical History Benign prostatic hyperplasia Surgical History Surgical History History of total right hip arthroplasty (07/16/22) standard approach History of total left hip arthroplasty (12/15/23) anterior approach History of prosthetic unicompartmental arthroplasty of right knee (08/03/12) History of hemorrhoidectomy History of cataract surgery Family History Family History Father Diabetes mellitus Mother Diabetes mellitus Sibling Diabetes mellitus Other Family history of sleep apnea Social History Social History Social History: Surrogate medical decision maker: Swathi Mooney, spouse. Code status: Full code. Smoking packs per day: 2 Smoking cigarettes per day: 40.0 Years smoked: 40 Smoking pack-years: 80.00 Smoking status: Former smoker Tobacco type: cigarettes Second hand tobacco smoke exposure: No Smoking end date: 02/23/71 Alcohol intake: never Substance use: never Substance use type: does not use Current Housing: Decline to Answer Concerned About Future Housing: Decline to Answer Difficulty Paying Gas/Electric Bills: Decline to Answer Difficulty Paying for Meds: Decline to Answer Currently Unemployed: Decline to Answer Education: Decline to Answer Difficulty w/ Childcare or Family Care: Decline to Answer Living arrangements: with family Additional living arrangements comments: Lives with spouse in [place]. 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 Spiritual care concerns: No Comments At time of signature, I have reviewed and agree with nursing past medical, surgical, social and family history unless otherwise noted. Please see nursing chart for further information. There is no relevant family history pertinent to the presenting complaint Exam Narrative: GENERAL: Mildly ill-appearing, well-nourished, and in no acute distress. HEAD: Normocephalic, atraumatic. EYES: EOMI. No redness or drainage. Conjunctivae normal. ENT: Mucous membranes pink and moist. Nares clear. No rhinorrhea. TMs normal bilaterally. Throat normal. Uvula midline. NECK: Normal AROM. Supple. No lymphadenopathy. CHEST: No respiratory distress. Slight crackling in the bilateral mid lung zones. HEART: Regular rate and rhythm. No murmur appreciated. Normal peripheral pulses. EXTREMITIES: Normal range of motion. No edema. SKIN: Warm, dry, no rash. Capillary refill normal. Normal skin turgor. NEURO: No focal deficits. Alert and oriented x3. Patient quite unsteady on his feet and has to use a walker today due to this. He also is having a hard time sitting upright on exam table due to this dizziness. PSYCH: Normal affect. No signs of depression or anxiety. Course Course Level of Care: Express Care Visit Vital Signs Vital signs: Vital Signs Temperature 100.6 F H 11/03/24 17:28 Pulse Rate 102 H 11/03/24 17:28 Respiratory Rate 18 11/03/24 17:28 Blood Pressure 148/80 H 11/03/24 17:28 Pulse Oximetry 98 11/03/24 17:28 Oxygen Delivery Room Air 11/03/24 17:28 Temperature 100.6 F H 11/03/24 17:28 Pulse Rate 102 H 11/03/24 17:28 Respiratory Rate 18 11/03/24 17:28 Blood Pressure 148/80 H 11/03/24 17:28 Pulse Oximetry 98 11/03/24 17:28 Oxygen Delivery Room Air 11/03/24 17:28 Reviewed MDM - URI/Sore Throat MDM Narrative Medical decision making narrative: 78-year-old male patient presents today with the fever, chills, sweats, cough, right ear pain, dizziness yesterday. He has been taking Tylenol with some improvement. No history of chronic respiratory itches. Upon exam, patient is a bit unsteady on his feet and using a walker to ambulate. Has some slight crackling in the bilateral mid lung zones but is nonlabored. Ear and throat exams are normal. COVID-19 and influenza tests are negative. Chest x-ray shows, Small opacities in the mid and lower lungs which represents atelectasis/scarring or infiltrates.Patient will be treated with high-dose amoxicillin and azithromycin for presumed developing pneumonia. Tachycardia of 102 upon arrival is likely due to fever of 100.6. Patient is not short of breath and has no chest pain. He is nontoxic-appearing at this time. Strict ED precautions given to patient and . They agree with plan. Anticipatory guidance given. Differential Diagnosis Differential diagnosis: Likely upper respiratory infection, viral infection, influenza and other (COVID-19, otitis media, pneumonia, COVID-19) Lab Data Attestation: I reviewed the patient's lab results. Labs: Lab Results 11/03/24 Range/Units 17:48 POC Influenza A Ag Negative (Negative) POC Influenza B Ag Negative (Negative) POC SARS CoV-2 Ag Negative (Negative) Imaging Data Radiologist's impression: ITS Impressions Chest X-Ray 11/03/24 17:51 IMPRESSION: 1: Small opacities in the mid and lower lungs which represents atelectasis/scarring or infiltrates. Critical Care Time Critical Care Time Critical Care Time: No Discharge Plan Discharge Clinical Impression: Pneumonia Qualifiers: Pneumonia type: due to unspecified organism Laterality: bilateral Lung location: unspecified part of lung Qualified Code(s): J18.9 - Pneumonia, unspecified organism Patient Disposition: Home Condition: Stable Instructions: Antibiotic Form, Community Acquired Pneumonia (DC) Additional Instructions: Your COVID-19 and influenza tests were negative today. Your chest x-ray shows possible development of some mild pneumonia in both sides of your lung. Please take the azithromycin and amoxicillin as prescribed. Continue Tylenol for your fever/body aches if needed. Consider Mucinex to break up any chest congestion. Follow-up with your PCP in 3 days if symptoms are not improving. As discussed, if symptoms worsen in any way, including shortness of breath or chest pain, please go to the ER immediately for further evaluation. Patient Language: [place] Islander Prescriptions: New amoxicillin 500 mg tablet 1,000 mg PO TID 5 Days Qty: 30 0RF azithromycin 250 mg tablet 250 mg PO DAILY Qty: 6 0RF Rx Instructions: take 500 mg today (day 1), then 250 mg daily on days 2-5. No Action acetaminophen [Tylenol Arthritis Pain] 650 mg Tablet Extended Release 650 mg PO Q12H PRN (Reason: Pain) finasteride 5 mg tablet See Rx Instructions .ROUTE .COMPLEX Qty: 90 1RF Dose Instruction: TAKE 1 TABLET BY MOUTH DAILY Rx Instructions: TAKE 1 TABLET BY MOUTH DAILY tamsulosin 0.4 mg capsule See Rx Instructions .ROUTE .COMPLEX Qty: 90 1RF Dose Instruction: TAKE 1 CAPSULE BY MOUTH DAILY Rx Instructions: TAKE 1 CAPSULE BY MOUTH DAILY Follow-up/Referrals: Javda Finn MD [Primary Care Provider, Family Practice] Time of Disposition: 18:15
[2024-11-03 17:50] LABS: EDCOVIDSCREEN Negative (Negative); EDINFLUASCREEN Negative (Negative); EDINFLUBSCREEN Negative (Negative)
== END 2024-11-03 18:18 | disposition home or self-care (01) ==
PROVIDERS: Emergency Provider Nurse Practitioner; PCP Family Medicine
DX: J18.9 Pneumonia, unspecified organism (principal); Z20.822 Contact with and (suspected) exposure to COVID-19; Z87.891 Personal history of nicotine dependence; N40.0 Benign prostatic hyperplasia without lower urinary tract symptoms; Z96.643 Presence of artificial hip joint, bilateral
CPT/HCPCS: 71046; 87426; 87804; 99213; G0463

== ENCOUNTER 2024-11-09 12:12 | Outpatient (CLI) | payer MEDICARE, SELFPAY ==
--- NOTE | ~2024-11-09 | XR_ITS ---
EXAMINATION: XR chest 2V, 11/09/2024 12:17 CDT HISTORY: Fever, unspecified, pneumonia x 1 week, fever in the pm COMPARISON: No comparisons available. Technique: 2 views obtained. Findings: The lungs are clear, no effusion. No pneumothorax. Heart is normal size. Mediastinal and hilar contours are within normal limits. Bony thorax no acute abnormality. Impression: No acute cardiopulmonary abnormality. Reviewed, dictated and finalized at location A. Impression: No acute cardiopulmonary abnormality.
== END 2024-11-09 12:13 | disposition home or self-care (01) ==
LOC: GOSHIMG 12:12
PROVIDERS: PCP Family Medicine; Visit Provider Nurse Practitioner Family
DX: R50.9 Fever, unspecified (principal)
CPT/HCPCS: 71046